=== PATIENT | female | born 1955 | race African-American/Black ===

== ENCOUNTER 2017-03-22 13:42 | Inpatient (IN) | payer BC ==
[~2017-03-22] VITALS: Ht 167.6 cm; Wt 120.8 kg
[2017-03-22] MEDS ORDERED: HYDROmorphone 2 MG/ML VIAL IM ONE ×3 (14:45→17:15)
[2017-03-22] MEDS ORDERED: predniSONE 10 MG TABLET PO ONE (14:45)
--- NOTE | 2017-03-22 14:58 | PHYS DOC ---
Past Medical History Past Medical History: GERD, Other Additional Past Medical Histor: herniated discs, prolapsed mitral valve, sciatica Past Surgical History: Alcohol Use: Rarely Drug Use: None Adult General Chief Complaint Chief Complaint: BACK PAIN - NO INJURY HPI HPI Patient is a 61 year old female who presents with complaint of right lower back pain. Patient states that she has history of sciatica. The patient was brought to the emergency department by EMS due to inability to walk today because of her pain. Patient states that her pain has been worsening for the last 4 days. Patient states that she has been to pain management clinic and has received multiple modalities of treatment including injections, physical therapy , and she states that this has not been able to fully control her pain. Patient does not remember any inciting event that led to worsening pain. Patient states that she has been taking ibuprofen with no relief in symptoms. Patient states that the pain starts in her right lower back and extends through to her right foot. Patient denies any loss of bowel or bladder control, saddle anesthesia, or foot drop. Patient rates pain currently is 10 out of 10. Patient states that she has been trying to ambulate with use of a cane but states that her leg has been causing too much pain for her to be able to do this. Review of Systems Review of Systems Constitutional: Denies fever or chills [] Eyes: Denies change in visual acuity, redness, or eye pain [] HENT: Denies nasal congestion or sore throat [] Respiratory: Denies cough or shortness of breath [] Cardiovascular: Denies chest pain or edema[] GI: Denies abdominal pain, nausea, vomiting, bloody stools or diarrhea [] : Denies dysuria or hematuria [] Musculoskeletal: Low back pain[] Integument: Denies rash or skin lesions [] Neurologic: Burning and tingling in right lower extremity, denies headache or focal weakness[] Current Medications Current Medications Current Medications Medications (Trade) Dose Ordered Sig/Manuel Start Time Stop Time Status Last Admin Dose Admin Hydromorphone HCl (Dilaudid) 1 mg 1X ONCE 03/22/17 17:15 03/22/17 17:16 DC Orphenadrine Citrate (Norflex) 60 mg 1X ONCE 03/22/17 16:30 03/22/17 16:31 DC 03/22/17 16:42 60 MG Prednisone (Prednisone) 50 mg 1X ONCE 03/22/17 14:45 03/22/17 14:46 DC 03/22/17 14:55 50 MG Allergies Allergies Allergies Coded Allergies Type Severity Reaction Last Updated Verified Iodine and Iodide Containing Produc Allergy Intermediate 03/22/17 Yes Physical Exam Physical Exam Constitutional: Alert, obese, afebrile, appears in moderate discomfort. [] HENT: Normocephalic, atraumatic, bilateral external ears normal, oropharynx moist, no oral exudates, nose normal. [] Eyes: PERRLA, EOMI, conjunctiva normal, no discharge. [] Neck: Normal range of motion, no tenderness, supple, no stridor. [] Cardiovascular:Heart rate regular rhythm, no murmur [] Lungs & Thorax: Bilateral breath sounds clear to auscultation [] Abdomen: Bowel sounds normal, soft, no tenderness, no masses, no pulsatile masses. [] Skin: Warm, dry, no erythema, no rash. [] Back: Right lower lumbar paraspinous muscle tenderness to palpation, no midline tenderness, positive straight leg test and right lower extremity, no flank ecchymosis. [] Extremities: No tenderness, no cyanosis, no clubbing, ROM intact, no edema. [] Neurologic: Alert and oriented X 3, normal motor function, bilateral lower extremity dorsiflexion that foot 5 out of 5, normal sensory function, no focal deficits noted. [] Current Patient Data Vital Signs Vital Signs Date Time Temp Pulse Resp B/P (MAP) Pulse Ox O2 Delivery O2 Flow Rate FiO2 03/22/17 18:20 Room Air 03/22/17 13:45 98.8 84 20 150/85 (106) 99 98.8 EKG EKG Not performed[] Radiology/Procedures Radiology/Procedures Not performed[] Course & Med Decision Making Course & Med Decision Making Pertinent Labs and Imaging studies reviewed. (See chart for details) The patient has clinical signs of acute exacerbation of right-sided sciatica. Patient will be started on IM Dilaudid and oral prednisone in the emergency department. The patient may require multiple doses in the emergency department with a goal of adequate pain control and continue outpatient treatment. If the patient does not improve after multiple doses of meds given, it would be appropriate to admit the patient for further pain control. Care of patient was signed out to Dr. Ani at 1500. Patient has been reevaluated in the ED for management of her pain. Patient attempted ambulation at approximately 5 PM without success. Patient was given an additional dose of Dilaudid and IM Norflex without any significant improvement in her pain. Patient is still not and bleeding safely. Patient was unable take more than 2 steps without nearly falling. Patient was on the third floor and does not feel safe going home. Given the patient's severe pain and inability to ambulate she will be admitted to the hospital for pain management. Patient has labs ordered as well as CT scan of her lumbosacral spine. We will consult physical therapy. Dragon Disclaimer Dragon Disclaimer This electronic medical record was generated, in whole or in part, using a voice recognition dictation system. Departure Departure Impression: Primary Impression: Sciatica of right side Additional Impression: Intractable back pain Disposition: ADMITTED INPATIENT Admitting Physician: Derek Mendoza Condition: IMPROVED Problem Qualifiers GOVIND SIEGEL MD Mar 22, 2017 14:58 FRANCES ALEGRIA MD Mar 22, 2017 19:42
[2017-03-22] MEDS ORDERED: HYDROmorphone 2 MG/ML VIAL IV ONE (16:30)
[2017-03-22] MEDS ORDERED: ORPHENADRINE CITRATE 60 MG/2 ML VIAL. IM ONE (16:30)
[2017-03-22] MEDS ORDERED: ONDANSETRON PF 4 MG/2 ML VIAL. IV PRN (19:45)
[2017-03-22] MEDS ORDERED: ACETAMINOPHEN 325 MG TABLET. PO PRN (19:45)
[2017-03-22] MEDS ORDERED: KETOROLAC 15 MG/ML VIAL. IV ONE (19:45)
[2017-03-22 19:52] LABS: BILIRUBIN,URINE NEGATIVE (NEG); GLUCOSE,URINE NEGATIVE (NEG); NITRITE,URINE NEGATIVE (NEG); PROTEIN,URINE NEGATIVE (NEG-TRACE); UROBILINOGEN,URINE 0.2 mg/dL (0.2 mg/dL)
[2017-03-22 20:05] LABS: BACTERIA,URINE MODERATE /HPF (0-FEW); RBC,URINE OCC /HPF (0-2); SQUAMOUS EPITHELIAL CELL,UR MOD /LPF
[2017-03-22] MEDS ORDERED: VENL75TA PO (20:07)
[2017-03-22 20:08] LABS: BASO % 0 % (0-3); EOS % 0 % (0-3); HEMATOCRIT 39.1 % (36.0-47.0); HEMOGLOBIN 12.4 g/dL (12.0-15.5); LYMPH # 1.2 x10^3/uL (1.0-4.8); LYMPH % 13 % (24-48); MEAN CORPUSCULAR HEMOGLOBIN 27 pg (25-35); MEAN CORPUSCULAR HGB CONC 32 g/dL (31-37); MEAN CORPUSCULAR VOLUME 86 fL (79-100); MONO % 2 % (0-9); NEUT % 85 % (31-73); PLATELET COUNT 475 x10^3/uL (140-400); RED BLOOD COUNT 4.53 x10^6/uL (3.50-5.40); RED CELL DISTRIBUTION WIDTH 16.3 % (11.5-14.5)
[2017-03-22 20:18] LABS: CALCIUM 8.8 mg/dL (8.5-10.1); CREATININE 0.7 mg/dL (0.6-1.0); GFR 102.3; POTASSIUM 4.6 mmol/L (3.5-5.1)
[2017-03-22 20:24] LABS: ALBUMIN 3.5 g/dL (3.4-5.0); ALBUMIN/GLOBULIN RATIO 0.8 (1.0-1.7); TOTAL BILIRUBIN 0.2 mg/dL (0.2-1.0); TOTAL PROTEIN 7.7 g/dL (6.4-8.2)
--- NOTE | 2017-03-22 20:49 | RAD ---
CT STUDY OF THE LUMBAR SPINE WITHOUT CONTRAST Clinical indications: Inability to walk this exam due to low back pain. History of sciatica. There is pain in the right foot. TECHNIQUE: Noncontrast helical CT scanning of the lumbar spine was performed. Multiplanar 2-D reconstructions were generated. FINDINGS: No compression fracture or discitis or osteolytic process is seen. There is a grade 1 anterolisthesis of L4-5 secondary to degenerative facet arthropathy. No spondylolysis is seen. The transverse processes are intact. At L2-3, mild diffuse disc protrusion is seen. At L3-4, moderate diffuse disc protrusion and degenerative endplate spurring is seen. Moderate facet arthropathy and ligamentum flavum hypertrophy is seen. These findings combine to form a moderate to severe spinal canal stenosis. There is mild narrowing of the neural foramina bilaterally. At L4-5, moderate diffuse disc protrusion and degenerative endplate spurring is seen. Facet arthropathy and ligamentum flavum hypertrophy is seen. These findings combine to form a moderate to severe spinal canal stenosis. In addition, there is mild narrowing of the neural foramina bilaterally. At L5-S1, moderate degenerative endplate spurring and diffuse disc bulging is seen which extends into the inferior aspect of the neural foramen bilaterally. There is moderate narrowing of the neural foramina bilaterally worse on the left side. Facet arthropathy and ligamentum flavum hypertrophy is seen. These findings combine to form a mild spinal canal stenosis at this level. Incidental note is made of calcified uterine fibroids. Small hiatal hernia is seen. IMPRESSION: No acute fracture. Multilevel spinal canal stenosis and neural foraminal narrowing as discussed above. Electronically signed by: Candido Han MD (03/22/2017 8:46 PM) [facility]
[2017-03-22 23:00] VITALS: BP 161/81
[2017-03-23] MEDS: fentaNYL PF VIAL 100 MCG/2 ML VIAL IV PRN ×3 (00:15→09:22)
[2017-03-23 03:00] VITALS: BP 160/93
[2017-03-23] MEDS ORDERED: RANI300C PO (06:03)
[2017-03-23] MEDS ORDERED: VENL75CA PO (06:03)
[2017-03-23] MEDS ORDERED: IBUP-1060 PO (06:03)
[2017-03-23] MEDS ORDERED: FAMOTIDINE 20 MG TABLET. PO PRN (06:15)
[2017-03-23] MEDS ORDERED: IBUPROFEN 800 MG TABLET. PO PRN (06:15)
[2017-03-23 07:00] VITALS: BP 155/82
[2017-03-23] MEDS: VENLAFAXINE XR 37.5 MG CAP.ER.24H. PO SCH (09:21)
[2017-03-23] MEDS ORDERED: ACETAMINOPHEN 325 MG TABLET. PO PRN (09:30)
[2017-03-23] MEDS ORDERED: MORPHINE SULFATE 2 MG/ML DISP.SYRIN. IV PRN (09:30)
[2017-03-23] MEDS ORDERED: traZODone 50 MG TABLET. PO PRN (09:30)
[2017-03-23] MEDS ORDERED: MAGNESIUM HYDROXIDE 2,400 MG/30 ML ORAL.SUSP. PO PRN (09:30)
[2017-03-23] MEDS ORDERED: MORPHINE SULFATE 4 MG/ML DISP.SYRIN. IV PRN (09:30)
--- NOTE | 2017-03-23 09:48 | PDOC ---
Provider Note Provider Note history and physical dictated # [id number] MARCELA KWOK MD Mar 23, 2017 09:48
[2017-03-23] MEDS: amLODIPine BESYLATE 5 MG TABLET PO SCH (10:26)
[2017-03-23] MEDS: MULTIVITAMIN with MINERAL TABLET. PO SCH (10:26)
[2017-03-23] MEDS: FAMOTIDINE 20 MG TABLET. PO SCH ×2 (10:27→20:53)
[2017-03-23] MEDS: NICOTINE 14MG PATCH. TD SCH (10:28)
--- NOTE | 2017-03-23 10:31 | RAD ---
AP portable chest radiograph 03/23/2017 Clinical History: Hypertension. An AP portable erect digital radiograph of the chest was obtained. Comparison study is dated 12/22/2010. The cardiac silhouette is borderline enlarged. The thoracic aorta is tortuous. No acute pulmonary infiltrate is seen. No pleural effusion or pneumothorax is noted. Degenerative changes are seen involving the thoracic spine and both shoulders. Impression: No acute abnormality is seen.
--- NOTE | 2017-03-23 10:43 | EKG ---
[facility] [address] [place] [address] Test Date: 2017-03-23 Test Time: 10:30:56 Pat Name: NGA KHAN Department: Room: 536 1 Gender: F Outcomes Manager: : 1955 Requested By: MARCELA KWOK Order Number: [id number] Reading MD: Mary Kay Yanez Measurements Intervals [place] Rate: 77 P: 64 FL: 146 QRS: 34 QRSD: 78 T: 35 QT: 366 QTc: 416 Interpretive Statements SINUS RHYTHM NORMAL ECG Electronically Signed On 03-25-2017 12:00:51 CDT by Mary Kay Yanez
[2017-03-23 10:59] VITALS: BP 141/80
--- NOTE | 2017-03-23 11:00 | HP ---
ADMIT DATE: 03/22/2017 LOCATION: She is in room 536. HISTORY OF PRESENT ILLNESS: The patient is a 61-year-old -[place] female with a history of low back pain and right-sided sciatica, who received lumbar epidural steroid injections 1-2 years ago without benefit. She has been continuing to have intermittent pain in her lower back and sciatica down the right leg, developed worsening symptoms starting on 03/18/2017 without any injury or significant trauma. She has had intractable low back pain and sciatica down the right leg and feels like her right foot has pins and needles. It is to the point where she could not get out of bed and move around because of the severe pain. She sought help at the [facility] Emergency Room on 03/22/2017 and a CAT scan of lumbosacral spine showed that she had moderate to severe spinal stenosis involving L3-L4 and L4-L5. She had mild spinal stenosis involving L5-S1. She subsequently admitted to the hospital for pain control and for evaluation of her lumbar spinal stenosis with right-sided lumbar radiculopathy, intractable back pain and right leg pain. She denies any fever. Bowels have been moving well. Denies any bowel or bladder incontinence. ALLERGIES AND INTOLERANCES: INCLUDE OMEPRAZOLE, VANCOMYCIN CAUSE ITCHING, AND IODINE. MEDICATIONS: Prior to admission include Effexor XR 225 mg every day, multiple vitamin every day, ranitidine 150 mg b.i.d., trazodone 50 mg at bedtime p.r.n., vitamin C 500 mg every day and vitamin D 2000 units every day. PAST MEDICAL HISTORY: Significant for depression, osteoarthritis, gastroesophageal reflux disease. She also has a history of osteoarthritis. She has a history of lumbar spondylosis and intermittent right-sided lumbar radiculopathy. SOCIAL HISTORY: She does not drink alcohol nor does she smoke cigarettes. FAMILY HISTORY: Noncontributory. REVIEW OF SYSTEMS: GENERAL: She denies any fever, chills or sweats prior to admission. CARDIOVASCULAR: No chest pain. PULMONARY: No cough or shortness of breath. GASTROINTESTINAL: No constipation. SKIN: No rashes. NEUROLOGIC: She has got the sciatica down the right leg. ENDOCRINE: No diabetes mellitus. The rest of systems reviewed are negative except as stated in the history of present illness. PHYSICAL EXAMINATION: VITAL SIGNS: Her temperature is 98 degrees, apical pulse 77, respiratory rate 18, blood pressure is 155/82, and her blood pressure has been high since she has been admitted. Oxygen saturation 98% on room air. HEENT: Eyes: Gaze is conjugate. Extraocular muscles are intact. Mouth: Tongue is midline. NECK: There is no cervical lymphadenopathy or thyroid enlargement. HEART: Reveals an S1, S2. There is no S3 or murmur. LUNGS: Clear. ABDOMEN: Soft with no hepatosplenomegaly, masses or tenderness. EXTREMITIES: Lower extremities without edema. Dorsalis pedis pulses are 2+ bilaterally. SKIN: No rashes. NEUROLOGIC: She is coherent, got 5/5 bilateral hand occupational health coordinator and biceps strength. Able to dorsi and plantarflex her feet, bend her knees and raise her legs up in the air. SKIN: No rashes. REVIEW OF LABORATORY DATA: Her white count is 9, hemoglobin 12.4, platelet count ,000, 85 polys and 13 lymphocytes. Sodium 142, potassium 4.6, chloride 104, total CO2 is 30, blood sugar 124 last night and was 141 at bedtime. Liver function tests were normal. Albumin 3.5. Urinalysis was unremarkable. ASSESSMENT: 1. Lumbar spinal stenosis with intractable low back pain and right lumbar radiculopathy, which has progressed in the last 6 days, making it an intractable pain involving her back and radiculopathy. 2. Gastroesophageal reflux disease. 3. Hypertension. PLAN: At this time is to consult Dr. Mason for physical rehabilitation and we will also consult Dr. Link for neurosurgery and also Dr. Benjamin Lopez for lumbar epidural steroid injection, which however, did not work 1-2 years ago. We will also consult physical and occupational therapy. We will order morphine sulfate 2-4 mg IV every 4 hours p.r.n., oxycodone 5-10 mg every 4 hours p.r.n. and Flexeril 10 mg t.i.d. p.r.n. and ibuprofen 800 mg t.i.d., Pepcid 20 mg b.i.d. and continue the Effexor XR. We will also order a baseline EKG and a chest x-ray and start her on amlodipine 5 mg every day for hypertension. We will also get an MRI of the lumbar spine to look at that lower back more closely. We will put her on Senokot-S daily and SCDs for deep vein thrombosis prophylaxis. MARCELA KWOK MD DR: ANCA/fanta JOB#: [id number] / [id number]
--- NOTE | 2017-03-23 12:10 | PDOC ---
Provider Note Provider Note patient seen and examined c/o back and right leg pain On CT scan stenosis primarily at L4-5 strongly opposed to any surgical intervention recommend lumbar epidural steroid injections Lumbar MRI today full consult to follow NIKOS KNIGHT MD Mar 23, 2017 12:10
[2017-03-23] MEDS ORDERED: BUPIVACAINE MPF 0.25% 10 ML VIAL. IJ ONE (12:15)
[2017-03-23] MEDS ORDERED: methylPREDNISolone ACETATE 40 MG/ML VIAL. IM ONE ×3 (12:15)
--- NOTE | 2017-03-23 12:53 | CONS ---
DATE OF CONSULTATION: LOCATION: She is in room# 536. ATTENDING PHYSICIAN: Dr. Mendoza. REASON FOR CONSULTATION: The patient was seen at the request of Dr. Mendoza for rehab evaluation. HISTORY OF PRESENT ILLNESS: This is a 61-year-old right-handed female with chronic lower back pain with right lumbar radiculitis. Had received lumbar epidural steroid injections about 1-2 years ago without any help. The patient with intermittent back pain, but started having increasing pain, starting on 03/18/2017, without any specific injury or accident. She was admitted through the Emergency Room on 03/22/[address] scan of the lumbar spine revealed [id number] spinal stenosis involving L3-L4, L4-L5, and mild stenosis at L5-S1. The patient denies any trouble with her bowel or bladder control. She admits pain in her neck with heaviness feeling in her left upper extremity, and also numbness, tingling in both hands, and right lower extremity, and she also admits pain in her knees. The patient with known depression, degenerative joint disease of both knees. Had steroid injection done in the past without any lasting help. Gastroesophageal reflux disease. 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 She lives in a third-level apartment. Had lots of stairs for her to manage. She had a cane to walk. ALLERGIES: THE PATIENT IS KNOWN ALLERGIC TO IODINE, LACTOSE, OMEPRAZOLE, VANCOMYCIN. PHYSICAL EXAMINATION: Today revealed a middle-aged female. She is pleasant, alert, oriented to time, place, person and circumstance, and follows commands appropriately. Moves all 4 extremities voluntarily, where she had 4+/5 grade muscle strength. Deep tendon reflexes are 1 to 2+ and symmetrical, and she had equal perception of touch and pinprick sensation bilaterally. She had a crepitus on range of motion of both knee joints, with knee joint effusion, and she had tenderness to palpation over right lumbar paraspinal muscles, extending over to the right gluteal muscles, over sacroiliac joint area and right trochanteric bursa, and also over cervical paraspinal muscles and also over thumb carpometacarpal joints bilaterally. She had positive Tinel sign over median nerve at the wrist. Negative Tinel sign over ulna, at the wrist and elbow. She is independent with bed mobility. I have not tested her transfers or ambulation skills at this time. Straight leg raising test is negative bilaterally. Her skin is intact at this time. She had tenderness to palpation over medial aspect of both knees. ASSESSMENT: 1. A middle-aged female, with chronic lower back pain, with recent exacerbation from degenerative disk disease and degenerative joint disease of lumbar vertebrae with right lumbar radiculitis, but no clinical evidence of ongoing lumbar radiculopathy. 2. Painful degenerative joints of both knees. 3. Probable degenerative disk disease and degenerative joint disease of cervical vertebrae with left cervical radiculitis and clinical evidence of bilateral carpal tunnel syndrome. She knows that she had carpal tunnel syndrome in the past, but had not had surgery for it. She also had degenerative changes at thumb carpometacarpal joints in both hands, without any significant discomfort. The patient with known depression, gastroesophageal reflux disease and obesity. RECOMMENDATIONS: At her request, I have injected painful right sacroiliac joint under aseptic skin technique, after skin preparation using alcohol swab with Marcaine and Depo-Medrol solution, and she tolerated the procedure satisfactorily without any side effects. To ask physical therapy to try physical modalities, to also obtain MRI scan for cervical vertebrae and x-rays of her knees, and agree with the plans for a walker. Hopefully, home with outpatient followup when medically stable in the next day or so. Dr. Mendoza, appreciate asking me to participate in the care of this interesting patient. I will be glad to follow her with you as needed for her rehabilitation. BOB GUADARRAMA MD DR: MARIA ESTHER/fanta JOB#: [id number] / [id number] SULEMA
[2017-03-23 15:00] VITALS: BP 135/83
[2017-03-23] MEDS: CHOLECALCIFEROL (VITAMIN D3) 1,000 UNIT TABLET PO SCH (15:31)
[2017-03-23] MEDS: IBUPROFEN 800 MG TABLET. PO SCH ×2 (15:31→21:00)
--- NOTE | 2017-03-23 18:20 | CONS ---
DATE OF CONSULTATION: 03/23/2017 REASON FOR CONSULTATION: Back and right leg pain. HISTORY OF PRESENT ILLNESS: The patient is a pleasant 61-year-old woman who has a long history of low back pain as well as episodes of right-sided radiculopathy. She reported to me that she received epidural steroid injections for a similar problem, although not quite as severe, a couple of years ago without significant benefit. She did say that she improved, but has had continued difficulty with some pain in her back and right leg. Recently she developed worsened symptoms. She said the pain would radiate into her right leg and she felt like there was a pins and needles sensation in her right foot. She had difficulty ambulating. She was taken to the Emergency Room for further evaluation and treatment and is admitted. She did undergo a CT scan of the lumbar spine recently in which spinal stenosis was seen. Since she has been hospitalized, she feels as though her pain control has improved. She continues to have difficulty with walking. She does not notice weakness in her leg, but says that there is numbness in her right foot. She does not notice any bowel or bladder difficulty. ALLERGIES: SHE REPORTS ALLERGIES TO OMEPRAZOLE, VANCOMYCIN AND IODINE. MEDICATIONS: Reviewed on the MRAD, they are noncontributory. PAST MEDICAL HISTORY: Includes gastroesophageal reflux disease, degenerative arthritis, depression. SOCIAL HISTORY: She does not drink alcohol or smoke cigarettes. REVIEW OF SYSTEMS: A 12 points was performed and was negative other than outlined above. PHYSICAL EXAMINATION: GENERAL: She is pleasant, alert and cooperative. HEENT: Normocephalic, atraumatic. NEUROLOGICAL: Pupils were equal and reactive. Extraocular motor function was normal. Facial motor and facial sensory examination was normal. Lower cranial nerves were intact. Examination of her extremities, there was full range of motion of upper and lower extremities bilaterally. Motor strength is 5/5 in upper and lower extremities bilaterally. On sensory testing, she was intact to light touch in the upper and lower extremities with a slight decrease involving the dorsum of her right foot. Reflexes were trace to 1+ and symmetric. Straight leg raising on the right side was associated with back, right buttock and posterior thigh pain, relieved by Lasegue maneuver. Straight leg raising on the left side was negative. Examination of the lumbar spine, there was diffuse tenderness over the lower lumbar spine and also over the lumbar paraspinal regions bilaterally. IMAGING STUDIES: I reviewed a lumbar CT scan. On that study, I felt that there was moderately severe stenosis at L4-L5 and more mild stenosis at L3-L4. ASSESSMENT AND PLAN: The patient has a lumbar radiculopathy on the right side, most likely related to her stenosis at L4-L5. She has had problems now for years and has failed conservative measures in the past. I touched treatment options. She is strongly opposed to any type of surgical intervention. We will have Dr. Lopez see here for epidural steroid injections. She is scheduled to receive a lumbar MRI scan. I appreciate asking us to see her. NIKOS KNIGHT MD DR: EMILY/fanta JOB#: [id number] / [id number] SULEMA
[2017-03-23 19:00] VITALS: BP 143/80
[2017-03-23] MEDS: oxyCODONE IR 5 MG TABLET PO PRN (20:55)
[2017-03-23] MEDS: SENNOSIDES/DOCUSATE 8.6/50MG TABLET. PO SCH (20:56)
[2017-03-23 23:00] VITALS: BP 150/76
[2017-03-24] MEDS: oxyCODONE IR 5 MG TABLET PO PRN ×4 (00:51→23:45)
[2017-03-24] MEDS: CYCLOBENZAPRINE 10 MG TABLET. PO PRN ×3 (00:51→23:45)
[2017-03-24 03:00] VITALS: BP 138/68
[2017-03-24 07:00] VITALS: BP 138/84
--- NOTE | 2017-03-24 08:28 | RAD ---
Standing AP bilateral knee radiographs 03/23/2017 Clinical history: Bilateral knee pain. Standing AP digital radiographs of both knees were obtained. Moderate to severe degenerative changes are seen involving all 3 compartments of both knees, particularly the medial compartments. This consist of marked joint compartment narrowing, subchondral sclerosis and associated osteophyte formation. The joint spaces of the medial compartments of both knees are largely obliterated with near bone to bone contact. No fracture or dislocation is seen. Impression: Moderate to severe degenerative changes are seen involving both knees as outlined above.
[2017-03-24] MEDS: MULTIVITAMIN with MINERAL TABLET. PO SCH (08:49)
[2017-03-24] MEDS: CHOLECALCIFEROL (VITAMIN D3) 1,000 UNIT TABLET PO SCH (08:49)
[2017-03-24] MEDS: FAMOTIDINE 20 MG TABLET. PO SCH ×2 (08:52→20:27)
[2017-03-24] MEDS: amLODIPine BESYLATE 5 MG TABLET PO SCH (08:52)
[2017-03-24] MEDS: VENLAFAXINE XR 37.5 MG CAP.ER.24H. PO SCH (08:52)
[2017-03-24] MEDS: NICOTINE 14MG PATCH. TD SCH (08:53)
[2017-03-24] MEDS: IBUPROFEN 800 MG TABLET. PO SCH ×3 (09:00→20:27)
--- NOTE | 2017-03-24 09:39 | PDOC ---
PROGRESS NOTES Subjective Subjective says her back pain and sciatica is better but still hurts quite a bit., was able to wak to bathroom earlier. declines surgery. concurs with HOANG and will be seen by dr. Lopez tomorrow. bowels are okay. blood pressure is okay. Objective Objective Vital Signs Date Time Temp Pulse Resp B/P (MAP) Pulse Ox O2 Delivery O2 Flow Rate FiO2 03/24/17 08:53 Room Air 03/24/17 08:52 72 138/84 03/24/17 07:00 98.1 20 94 98.1 Intake and Output 03/25/17 07:00 Intake Total 300 ml Balance 300 ml Intake Oral 300 ml Physical Exam Abdomen: Soft Heart: Regular rate, Normal S1, Normal S2 Extremities: No edema General: Alert HEENT: Atraumatic Lungs: Clear to auscultation Neuro: Normal speech Psych/Mental Status: Mental status NL Skin: No rashes Assessment Assessment Problems1. Lumbar spinal stenosis with intractable low back pain and right lumbar radiculopathy 2. Gastroesophageal reflux disease. 3. Hypertension. Medical Problems: (1) Sciatica of right side Status: Acute Plan Plan of Care PT continue prn iv morphine and prn oxycodone continue prn flexeril consult dr. lopez for LESI continue amlodipine continue ibuprofen Comment Review of Relevant I have reviewed the following items blake (where applicable) has been applied. Labs Laboratory Tests Test 03/22/17 19:44 03/22/17 19:55 03/22/17 21:36 Urine Collection Type Unknown Urine Color Yellow Urine Clarity Cloudy Urine pH 6.0 Urine Specific [place] 1.025 Urine Protein Negative mg/dL (NEG-TRACE) Urine Glucose (UA) Negative mg/dL (NEG) Urine Ketones (Stick) Negative mg/dL (NEG) Urine Blood Negative (NEG) Urine Nitrite Negative (NEG) Urine Bilirubin Negative (NEG) Urine Urobilinogen Dipstick 0.2 mg/dL (0.2 mg/dL) Urine Leukocyte Esterase Negative (NEG) Urine RBC Occ /HPF (0-2) Urine WBC 1-4 /HPF (0-4) Urine Squamous Epithelial Cells Mod /LPF Urine Bacteria Moderate /HPF (0-FEW) Urine Mucus Marked /LPF White Blood Count 9.0 x10^3/uL (4.0-11.0) Red Blood Count 4.53 x10^6/uL (3.50-5.40) Hemoglobin 12.4 g/dL (12.0-15.5) Hematocrit 39.1 % (36.0-47.0) Mean Corpuscular Volume 86 fL (79-100) Mean Corpuscular Hemoglobin 27 pg (25-35) Mean Corpuscular Hemoglobin Concent 32 g/dL (31-37) Red Cell Distribution Width 16.3 % (11.5-14.5) Platelet Count 475 x10^3/uL (140-400) Neutrophils (%) (Auto) 85 % (31-73) Lymphocytes (%) (Auto) 13 % (24-48) Monocytes (%) (Auto) 2 % (0-9) Eosinophils (%) (Auto) 0 % (0-3) Basophils (%) (Auto) 0 % (0-3) Neutrophils # (Auto) 7.6 x10^3uL (1.8-7.7) Lymphocytes # (Auto) 1.2 x10^3/uL (1.0-4.8) Monocytes # (Auto) 0.2 x10^3/uL (0.0-1.1) Eosinophils # (Auto) 0.0 x10^3/uL (0.0-0.7) Basophils # (Auto) 0.0 x10^3/uL (0.0-0.2) Sodium Level 142 mmol/L (136-145) Potassium Level 4.6 mmol/L (3.5-5.1) Chloride Level 104 mmol/L (98-107) Carbon Dioxide Level 30 mmol/L (21-32) Anion Gap 8 (6-14) Blood Urea Nitrogen 10 mg/dL (7-20) Creatinine 0.7 mg/dL (0.6-1.0) Estimated GFR (Cockcroft-Gault) 102.3 BUN/Creatinine Ratio 14 (6-20) Glucose Level 124 mg/dL (70-99) Calcium Level 8.8 mg/dL (8.5-10.1) Total Bilirubin 0.2 mg/dL (0.2-1.0) Aspartate Amino Transf (AST/SGOT) 23 U/L (15-37) Alanine Aminotransferase (ALT/SGPT) 29 U/L (14-59) Alkaline Phosphatase 75 U/L (46-116) Total Protein 7.7 g/dL (6.4-8.2) Albumin 3.5 g/dL (3.4-5.0) Albumin/Globulin Ratio 0.8 (1.0-1.7) Glucose (Fingerstick) 141 mg/dL (70-99) Microbiology 03/22/17 Urine Culture - Preliminary, Resulted 03/22/17 Urine Culture Result 1 (VERNA) - Preliminary, Resulted Medications Current Medications Hydromorphone HCl (Dilaudid) 1 mg 1X ONCE IM Last administered on 03/22/17 14 :55; Start 03/22/17 at 14:45; Stop 03/22/17 at 14:46; Status DC Prednisone (Prednisone) 50 mg 1X ONCE PO Last administered on 03/22/17 14:55 ; Start 03/22/17 at 14:45; Stop 03/22/17 at 14:46; Status DC Orphenadrine Citrate (Norflex) 60 mg 1X ONCE IM Last administered on 16:42; Start 03/22/17 at 16:30; Stop 03/22/17 at 16:31; Status DC Hydromorphone HCl (Dilaudid) 1 mg 1X ONCE IV ; Start 03/22/17 at 16:30; Stop at 17:08; Status DC Hydromorphone HCl (Dilaudid) 1 mg 1X ONCE IM Last administered on 03/22/17 17 :08; Start 03/22/17 at 17:15; Stop 03/22/17 at 17:16; Status DC Hydromorphone HCl (Dilaudid) 1 mg 1X ONCE IM ; Start 03/22/17 at 17:15; Stop at 17:16; Status DC Ondansetron HCl (Zofran) 4 mg PRN Q8HRS PRN IV NAUSEA/VOMITING; Start 03/22/17 at 19:45; Stop 03/23/17 at 19:44; Status DC Fentanyl Citrate (Fentanyl 2ml Vial) 50 mcg PRN Q2HR PRN IV PAIN Last administered on 03/23/17 09:22; Start 03/22/17 at 19:45; Stop 03/23/17 at 19:44 ; Status DC Acetaminophen (Tylenol) 650 mg PRN Q4HRS PRN PO FEVER Last administered on 03/23 05:29; Start 03/22/17 at 19:45; Stop 03/23/17 at 09:44; Status DC Ketorolac Tromethamine (Toradol) 15 mg 1X ONCE IV Last administered on 20:37; Start 03/22/17 at 19:45; Stop 03/22/17 at 19:46; Status DC Venlafaxine HCl (Effexor Xr) 225 mg DAILY PO Last administered on 03/24/17 08: 52; Start 03/23/17 at 09:00 Ibuprofen (Motrin) 800 mg PRN BID PRN PO INFLAMMATION Last administered on 03/23 09:21; Start 03/23/17 at 06:15; Stop 03/23/17 at 09:38; Status DC Famotidine (Pepcid) 40 mg PRN BID PRN PO HEARTBURN / GAS; Start 03/23/17 at 06: 15; Stop 03/23/17 at 09:38; Status DC Famotidine (Pepcid) 20 mg BID PO Last administered on 03/24/17 08:52; Start at 10:00 Ibuprofen (Motrin) 800 mg TID PO Last administered on 03/23/17 15:31; Start at 14:00 Senna/Docusate Sodium (Senna Plus) 2 tab QHS PO ; Start 03/23/17 at 21:00 Morphine Sulfate 4 mg PRN Q4HRS PRN IV PAIN; Start 03/23/17 at 09:30 Morphine Sulfate 2 mg PRN Q4HRS PRN IV PAIN; Start 03/23/17 at 09:30 Oxycodone HCl (Roxicodone) 5 mg PRN Q4HRS PRN PO PAIN Last administered on 03/23 20:55; Start 03/23/17 at 09:30 Oxycodone HCl (Roxicodone) 10 mg PRN Q4HRS PRN PO PAIN Last administered on 08:53; Start 03/23/17 at 09:30 Multivitamins (Thera M Plus) 1 tab DAILY PO Last administered on 03/24/17 08: 49; Start 03/23/17 at 10:00 Trazodone HCl (Desyrel) 50 mg PRN QHS PRN PO INSOMNIA; Start 03/23/17 at 09:30 Vitamin D (Vitamin D3) 1,000 unit DAILY PO Last administered on 03/24/17 08:49 ; Start 03/23/17 at 10:00 Acetaminophen (Tylenol) 650 mg PRN Q6HRS PRN PO MILD PAIN / TEMP; Start at 09:30 Magnesium Hydroxide (Milk Of Magnesia) 2,400 mg PRN DAILY PRN PO CONSTIPATION; Start 03/23/17 at 09:30 Amlodipine Besylate (Norvasc) 5 mg DAILY PO Last administered on 03/24/17 08: 52; Start 03/23/17 at 10:00 Cyclobenzaprine HCl (Flexeril) 10 mg PRN TID PRN PO MUSCLE SPASMS Last administered on 03/24/17 09:01; Start 03/23/17 at 10:00 Nicotine (Nicoderm Cq 14mg) 1 patch DAILY TD Last administered on 03/24/17 08: 53; Start 03/23/17 at 11:00 Methylprednisolone Acetate (DEPO-Medrol 40MG VIAL) 40 mg 1X ONCE IM ; Start at 12:15; Stop 03/23/17 at 12:16; Status DC Methylprednisolone Acetate (DEPO-Medrol 40MG VIAL) 40 mg 1X ONCE IM ; Start at 12:15; Stop 03/23/17 at 12:16; Status DC Methylprednisolone Acetate (DEPO-Medrol 40MG VIAL) 40 mg 1X ONCE IM ; Start at 12:15; Stop 03/23/17 at 12:16; Status DC Bupivacaine HCl (Sensorcaine-Mpf 0.25%) 10 ml 1X ONCE IJ ; Start 03/23/17 at 12 :15; Stop 03/23/17 at 12:16; Status DC Active Scripts Active Reported Ibuprofen 800 Mg Tablet 800 Mg PO PRN BID PRN Ranitidine Hcl 300 Mg Capsule 1 Cap PO PRN BID PRN Effexor Xr (Venlafaxine Hcl) 75 Mg Cap.er.24h 3 Cap PO DAILY Vitals/I & O Vital Sign - Last 24 Hours 03/23/17 03/23/17 03/23/17 03/23/17 10:26 10:59 15:00 19:00 Temp 97.8 98.2 98.7 97.8 98.2 98.7 Pulse 77 78 80 99 Resp 18 18 20 B/P (MAP) 155/82 141/80 (100) 135/83 (100) 143/80 (101) Pulse Ox 97 94 95 O2 Delivery Room Air Room Air Room Air 03/23/17 03/23/17 03/23/17 03/23/17 20:00 20:55 21:55 23:00 Temp 98.6 98.6 Pulse 81 Resp 21 B/P (MAP) 150/76 (100) Pulse Ox 95 95 99 O2 Delivery Room Air Room Air Room Air Room Air 03/24/17 03/24/17 03/24/17 03/24/17 00:51 01:51 03:00 07:00 Temp 98.1 98.1 Pulse 88 72 Resp 19 20 B/P (MAP) 138/68 (91) 138/84 (102) Pulse Ox 99 99 99 94 O2 Delivery Room Air Room Air Room Air Room Air 03/24/17 03/24/17 08:52 08:53 Pulse 72 B/P (MAP) 138/84 O2 Delivery Room Air Intake and Output 03/24/17 03/24/17 03/25/17 15:00 23:00 07:00 Intake Total 300 ml Balance 300 ml MARCELA KWOK MD Mar 24, 2017 09:39
[2017-03-24 11:00] VITALS: BP 144/91
--- NOTE | 2017-03-24 11:47 | RAD ---
MRI of the cervical spine without contrast 03/23/2017 Clinical history: Neck pain which radiates down the left arm. Technique: Unenhanced T1-weighted, T2-weighted and inversion recovery sagittal and gradient echo T2 weighted axial images of the cervical spine were obtained. Findings: Minimal lateral curvature of the cervical spine is seen convex to the left. There is straightening of the normal cervical lordosis. Incomplete segmentation is seen at T2-3. Degenerative signal changes are seen involving all of the discs of the cervical spine. Degenerative signal changes are seen within the marrow surrounding these discs. No area of abnormal signal intensity is seen involving the cervical spinal cord. On axial images degenerative changes are seen throughout the cervical disc spaces consisting of minimal to mild generalized disc bulges and degenerative changes involving the uncovertebral and facet joints bilaterally. Disc osteophyte complexes are seen at C4-5, C5-6 and C6-7 which measure 3 mm in AP diameter. These findings when combined do not result in significant central spinal canal stenosis at any level. No neural foraminal stenosis is seen. Impression: Degenerative changes are seen throughout the cervical spine. These findings do not result in significant central spinal canal or neural foraminal stenosis at any level.
--- NOTE | 2017-03-24 11:56 | RAD ---
MRI of the lumbar spine without contrast 03/23/2017 Clinical history: Low back pain which radiates down the right leg. Technique: Unenhanced T1-weighted and T2-weighted sagittal and axial and inversion recovery sagittal images of the lumbar spine were obtained. Findings: Comparison is made to a CT scan of the lumbar spine dated 03/22/2017. Mild lateral curvature of the lumbar spine is seen convex to the left. Degenerative signal changes are seen involving all of the discs of the lumbar spine. Degenerative signal changes are seen within the marrow surrounding these discs. Loss of height of the L5-S1 disc is noted. The conus medullaris is normal in morphology, position, and signal characteristics. The L1-2 disc space is within normal limits. At the L2-3 disc space there is a mild generalized disc bulge. This is eccentric to the right. Degenerative changes are seen along the facet joints bilaterally. There is mild ligamentum flavum hypertrophy bilaterally. These findings when combined do not result in significant central spinal canal or neural foraminal stenosis. At the L3-4 disc space there is a mild to moderate generalized disc bulge. Degenerative changes are seen involving the facet joints bilaterally. There is moderate ligament flavum hypertrophy bilaterally. These findings when combined result in mild to moderate central spinal canal stenosis. No neural foraminal stenosis is seen. At the L4-5 disc space there is a mild generalized disc bulge. Degenerative changes are seen involving the facet joints bilaterally. There is moderate ligamentum flavum hypertrophy bilaterally. Small facet joint effusions are seen, right greater than left. These findings when combined result in moderate to severe central spinal canal stenosis. Mild right greater than left neural foraminal stenosis is seen. At the L5-S1 disc space there is a mild generalized disc bulge. This is eccentric to the left. Degenerative changes are seen involving the facet joints bilaterally. These findings when combined do not result in significant central spinal canal stenosis. Mild to moderate left greater than right neural foraminal stenosis is seen. Impression: The changes of degenerative disc disease are seen throughout the lumbar spine. These findings result in mild to moderate central spinal canal stenosis at L3-4 and moderate to severe central spinal canal stenosis at L4-5. Mild right greater than left neural foraminal stenosis is seen at L4-5. Mild to moderate left greater the right neural foraminal stenosis is seen at L5-S1.
--- NOTE | 2017-03-24 12:58 | PDOC ---
PROGRESS NOTES Subjective Subjective improved less hip and leg pain today walking with walker Objective Objective Vital Signs Date Time Temp Pulse Resp B/P (MAP) Pulse Ox O2 Delivery O2 Flow Rate FiO2 03/24/17 11:00 98.1 79 20 144/91 (108) 99 Room Air 98.1 Intake and Output 03/25/17 07:00 Intake Total 300 ml Balance 300 ml Intake Oral 300 ml Physical Exam General: Alert, Oriented X3 Neuro: Other (normal strength in RLE) Assessment Assessment Problems Medical Problems: (1) Sciatica of right side Status: Acute Plan Plan of Care lumbar MRI moderate central canal stenosis at L4-5 with lateral recess narrowing LESI tomorrow can f/u with me as OP Comment Review of Relevant I have reviewed the following items blake (where applicable) has been applied. Labs Laboratory Tests Test 03/22/17 19:44 03/22/17 19:55 03/22/17 21:36 Urine Collection Type Unknown Urine Color Yellow Urine Clarity Cloudy Urine pH 6.0 Urine Specific [place] 1.025 Urine Protein Negative mg/dL (NEG-TRACE) Urine Glucose (UA) Negative mg/dL (NEG) Urine Ketones (Stick) Negative mg/dL (NEG) Urine Blood Negative (NEG) Urine Nitrite Negative (NEG) Urine Bilirubin Negative (NEG) Urine Urobilinogen Dipstick 0.2 mg/dL (0.2 mg/dL) Urine Leukocyte Esterase Negative (NEG) Urine RBC Occ /HPF (0-2) Urine WBC 1-4 /HPF (0-4) Urine Squamous Epithelial Cells Mod /LPF Urine Bacteria Moderate /HPF (0-FEW) Urine Mucus Marked /LPF White Blood Count 9.0 x10^3/uL (4.0-11.0) Red Blood Count 4.53 x10^6/uL (3.50-5.40) Hemoglobin 12.4 g/dL (12.0-15.5) Hematocrit 39.1 % (36.0-47.0) Mean Corpuscular Volume 86 fL (79-100) Mean Corpuscular Hemoglobin 27 pg (25-35) Mean Corpuscular Hemoglobin Concent 32 g/dL (31-37) Red Cell Distribution Width 16.3 % (11.5-14.5) Platelet Count 475 x10^3/uL (140-400) Neutrophils (%) (Auto) 85 % (31-73) Lymphocytes (%) (Auto) 13 % (24-48) Monocytes (%) (Auto) 2 % (0-9) Eosinophils (%) (Auto) 0 % (0-3) Basophils (%) (Auto) 0 % (0-3) Neutrophils # (Auto) 7.6 x10^3uL (1.8-7.7) Lymphocytes # (Auto) 1.2 x10^3/uL (1.0-4.8) Monocytes # (Auto) 0.2 x10^3/uL (0.0-1.1) Eosinophils # (Auto) 0.0 x10^3/uL (0.0-0.7) Basophils # (Auto) 0.0 x10^3/uL (0.0-0.2) Sodium Level 142 mmol/L (136-145) Potassium Level 4.6 mmol/L (3.5-5.1) Chloride Level 104 mmol/L (98-107) Carbon Dioxide Level 30 mmol/L (21-32) Anion Gap 8 (6-14) Blood Urea Nitrogen 10 mg/dL (7-20) Creatinine 0.7 mg/dL (0.6-1.0) Estimated GFR (Cockcroft-Gault) 102.3 BUN/Creatinine Ratio 14 (6-20) Glucose Level 124 mg/dL (70-99) Calcium Level 8.8 mg/dL (8.5-10.1) Total Bilirubin 0.2 mg/dL (0.2-1.0) Aspartate Amino Transf (AST/SGOT) 23 U/L (15-37) Alanine Aminotransferase (ALT/SGPT) 29 U/L (14-59) Alkaline Phosphatase 75 U/L (46-116) Total Protein 7.7 g/dL (6.4-8.2) Albumin 3.5 g/dL (3.4-5.0) Albumin/Globulin Ratio 0.8 (1.0-1.7) Glucose (Fingerstick) 141 mg/dL (70-99) Microbiology 03/22/17 Urine Culture - Preliminary, Resulted 03/22/17 Urine Culture Result 1 (VERNA) - Preliminary, Resulted Medications Current Medications Hydromorphone HCl (Dilaudid) 1 mg 1X ONCE IM Last administered on 03/22/17t 14 :55; Start 03/22/17 at 14:45; Stop 03/22/17 at 14:46; Status DC Prednisone (Prednisone) 50 mg 1X ONCE PO Last administered on 03/22/17 14:55 ; Start 03/22/17 at 14:45; Stop 03/22/17 at 14:46; Status DC Orphenadrine Citrate (Norflex) 60 mg 1X ONCE IM Last administered on 16:42; Start 03/22/17 at 16:30; Stop 03/22/17 at 16:31; Status DC Hydromorphone HCl (Dilaudid) 1 mg 1X ONCE IV ; Start 03/22/17 at 16:30; Stop at 17:08; Status DC Hydromorphone HCl (Dilaudid) 1 mg 1X ONCE IM Last administered on 03/22/17 17 :08; Start 03/22/17 at 17:15; Stop 03/22/17 at 17:16; Status DC Hydromorphone HCl (Dilaudid) 1 mg 1X ONCE IM ; Start 03/22/17 at 17:15; Stop at 17:16; Status DC Ondansetron HCl (Zofran) 4 mg PRN Q8HRS PRN IV NAUSEA/VOMITING; Start 03/22/17 at 19:45; Stop 03/23/17 at 19:44; Status DC Fentanyl Citrate (Fentanyl 2ml Vial) 50 mcg PRN Q2HR PRN IV PAIN Last administered on 03/23/17 09:22; Start 03/22/17 at 19:45; Stop 03/23/17 at 19:44 ; Status DC Acetaminophen (Tylenol) 650 mg PRN Q4HRS PRN PO FEVER Last administered on 03/23 05:29; Start 03/22/17 at 19:45; Stop 03/23/17 at 09:44; Status DC Ketorolac Tromethamine (Toradol) 15 mg 1X ONCE IV Last administered on 20:37; Start 03/22/17 at 19:45; Stop 03/22/17 at 19:46; Status DC Venlafaxine HCl (Effexor Xr) 225 mg DAILY PO Last administered on 03/24/17 08: 52; Start 03/23/17 at 09:00 Ibuprofen (Motrin) 800 mg PRN BID PRN PO INFLAMMATION Last administered on 03/23 09:21; Start 03/23/17 at 06:15; Stop 03/23/17 at 09:38; Status DC Famotidine (Pepcid) 40 mg PRN BID PRN PO HEARTBURN / GAS; Start 03/23/17 at 06: 15; Stop 03/23/17 at 09:38; Status DC Famotidine (Pepcid) 20 mg BID PO Last administered on 03/24/17 08:52; Start at 10:00 Ibuprofen (Motrin) 800 mg TID PO Last administered on 03/23/17 15:31; Start at 14:00 Senna/Docusate Sodium (Senna Plus) 2 tab QHS PO ; Start 03/23/17 at 21:00 Morphine Sulfate 4 mg PRN Q4HRS PRN IV PAIN; Start 03/23/17 at 09:30 Morphine Sulfate 2 mg PRN Q4HRS PRN IV PAIN; Start 03/23/17 at 09:30 Oxycodone HCl (Roxicodone) 5 mg PRN Q4HRS PRN PO PAIN Last administered on 03/23 20:55; Start 03/23/17 at 09:30 Oxycodone HCl (Roxicodone) 10 mg PRN Q4HRS PRN PO PAIN Last administered on 08:53; Start 03/23/17 at 09:30 Multivitamins (Thera M Plus) 1 tab DAILY PO Last administered on 03/24/17 08: 49; Start 03/23/17 at 10:00 Trazodone HCl (Desyrel) 50 mg PRN QHS PRN PO INSOMNIA; Start 03/23/17 at 09:30 Vitamin D (Vitamin D3) 1,000 unit DAILY PO Last administered on 03/24/17 08:49 ; Start 03/23/17 at 10:00 Acetaminophen (Tylenol) 650 mg PRN Q6HRS PRN PO MILD PAIN / TEMP; Start at 09:30 Magnesium Hydroxide (Milk Of Magnesia) 2,400 mg PRN DAILY PRN PO CONSTIPATION; Start 03/23/17 at 09:30 Amlodipine Besylate (Norvasc) 5 mg DAILY PO Last administered on 03/24/17 08: 52; Start 03/23/17 at 10:00 Cyclobenzaprine HCl (Flexeril) 10 mg PRN TID PRN PO MUSCLE SPASMS Last administered on 03/24/17 09:01; Start 03/23/17 at 10:00 Nicotine (Nicoderm Cq 14mg) 1 patch DAILY TD Last administered on 03/24/17 08: 53; Start 03/23/17 at 11:00 Methylprednisolone Acetate (DEPO-Medrol 40MG VIAL) 40 mg 1X ONCE IM ; Start at 12:15; Stop 03/23/17 at 12:16; Status DC Methylprednisolone Acetate (DEPO-Medrol 40MG VIAL) 40 mg 1X ONCE IM ; Start at 12:15; Stop 03/23/17 at 12:16; Status DC Methylprednisolone Acetate (DEPO-Medrol 40MG VIAL) 40 mg 1X ONCE IM ; Start at 12:15; Stop 03/23/17 at 12:16; Status DC Bupivacaine HCl (Sensorcaine-Mpf 0.25%) 10 ml 1X ONCE IJ ; Start 03/23/17 at 12 :15; Stop 03/23/17 at 12:16; Status DC Active Scripts Active Reported Ibuprofen 800 Mg Tablet 800 Mg PO PRN BID PRN Ranitidine Hcl 300 Mg Capsule 1 Cap PO PRN BID PRN Effexor Xr (Venlafaxine Hcl) 75 Mg Cap.er.24h 3 Cap PO DAILY Vitals/I & O Vital Sign - Last 24 Hours 03/23/17 03/23/17 03/23/17 03/23/17 15:00 19:00 20:00 20:55 Temp 98.2 98.7 98.2 98.7 Pulse 80 99 Resp 18 20 B/P (MAP) 135/83 (100) 143/80 (101) Pulse Ox 94 95 95 O2 Delivery Room Air Room Air Room Air Room Air 03/23/17 03/23/17 03/24/17 03/24/17 21:55 23:00 00:51 01:51 Temp 98.6 98.6 Pulse 81 Resp 21 B/P (MAP) 150/76 (100) Pulse Ox 95 99 99 99 O2 Delivery Room Air Room Air Room Air 03/24/17 03/24/17 03/24/17 03/24/17 03:00 07:00 08:00 08:52 Temp 98.1 98.1 Pulse 88 72 72 Resp 19 20 B/P (MAP) 138/68 (91) 138/84 (102) 138/84 Pulse Ox 99 94 O2 Delivery Room Air Room Air Room Air 03/24/17 03/24/17 03/24/17 08:53 09:53 11:00 Temp 98.1 98.1 Pulse 79 Resp 20 B/P (MAP) 144/91 (108) Pulse Ox 99 O2 Delivery Room Air Nasal Cannula Room Air Intake and Output 03/24/17 03/24/17 03/25/17 15:00 23:00 07:00 Intake Total 300 ml Balance 300 ml NIKOS KNIGHT MD Mar 24, 2017 12:58
[2017-03-24 15:06] VITALS: BP 135/87
[2017-03-24 19:00] VITALS: BP 140/87
[2017-03-24] MEDS: SENNOSIDES/DOCUSATE 8.6/50MG TABLET. PO SCH (20:27)
[2017-03-24 23:00] VITALS: BP 163/93
[2017-03-25] VITALS (7 sets, daily range): BP systolic 128–163; BP diastolic 72–98
[2017-03-25] MEDS: oxyCODONE IR 5 MG TABLET PO PRN ×3 (04:07→20:52)
[2017-03-25 08:22] LABS: CALCIUM 9.5 mg/dL (8.5-10.1); CREATININE 0.8 mg/dL (0.6-1.0); GFR 87.7
[2017-03-25] MEDS: MULTIVITAMIN with MINERAL TABLET. PO SCH (08:31)
[2017-03-25] MEDS: VENLAFAXINE XR 37.5 MG CAP.ER.24H. PO SCH (08:32)
[2017-03-25] MEDS: CHOLECALCIFEROL (VITAMIN D3) 1,000 UNIT TABLET PO SCH (08:32)
[2017-03-25] MEDS: FAMOTIDINE 20 MG TABLET. PO SCH ×2 (08:33→20:51)
[2017-03-25] MEDS: CYCLOBENZAPRINE 10 MG TABLET. PO PRN ×2 (08:34→20:50)
[2017-03-25] MEDS: amLODIPine BESYLATE 5 MG TABLET PO SCH (08:34)
[2017-03-25] MEDS: NICOTINE 14MG PATCH. TD SCH (08:34)
[2017-03-25] MEDS: IBUPROFEN 800 MG TABLET. PO SCH ×3 (08:38→20:50)
--- NOTE | 2017-03-25 09:52 | PDOC ---
PROGRESS NOTES Subjective Subjective She feels better with her back. 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 Assessment Assessment Problems Medical Problems: (1) Sciatica of right side Status: Acute Plan Plan of Care At her request,I have injected painful knee joints with marcaine and depomedrol solution and she tolerated the procedures satisfactorily.To get her lumbar corset and bilateral knee braces,roller walker and a manager group and she needs to move to an apartment where there are no stairs for her to manage. As he back pain is better with sacroiliac joint injection and previous lumbar ESIs did not help much,I don't think she needs lumbar ESIs now and with her knees and back pain and she being functionally independent with her mobility at roller walker level,I am concerned intensive rehab might irritate her back more than helping. Comment Review of Relevant I have reviewed the following items blake (where applicable) has been applied. Labs Laboratory Tests Test 03/25/17 07:50 Sodium Level 139 mmol/L (136-145) Potassium Level 4.0 mmol/L (3.5-5.1) Chloride Level 100 mmol/L (98-107) Carbon Dioxide Level 34 mmol/L (21-32) Anion Gap 5 (6-14) Blood Urea Nitrogen 11 mg/dL (7-20) Creatinine 0.8 mg/dL (0.6-1.0) Estimated GFR (Cockcroft-Gault) 87.7 Glucose Level 90 mg/dL (70-99) Calcium Level 9.5 mg/dL (8.5-10.1) Laboratory Tests Test 03/25/17 07:50 Sodium Level 139 mmol/L (136-145) Potassium Level 4.0 mmol/L (3.5-5.1) Chloride Level 100 mmol/L (98-107) Carbon Dioxide Level 34 mmol/L (21-32) Anion Gap 5 (6-14) Blood Urea Nitrogen 11 mg/dL (7-20) Creatinine 0.8 mg/dL (0.6-1.0) Estimated GFR (Cockcroft-Gault) 87.7 Glucose Level 90 mg/dL (70-99) Calcium Level 9.5 mg/dL (8.5-10.1) Microbiology 03/22/17 Urine Culture - Final, Complete 03/22/17 Urine Culture Result 1 (VERNA) - Final, Complete Medications Current Medications Hydromorphone HCl (Dilaudid) 1 mg 1X ONCE IM Last administered on 03/22/17 14 :55; Start 03/22/17 at 14:45; Stop 03/22/17 at 14:46; Status DC Prednisone (Prednisone) 50 mg 1X ONCE PO Last administered on 03/22/17 14:55 ; Start 03/22/17 at 14:45; Stop 03/22/17 at 14:46; Status DC Orphenadrine Citrate (Norflex) 60 mg 1X ONCE IM Last administered on 16:42; Start 03/22/17 at 16:30; Stop 03/22/17 at 16:31; Status DC Hydromorphone HCl (Dilaudid) 1 mg 1X ONCE IV ; Start 03/22/17 at 16:30; Stop at 17:08; Status DC Hydromorphone HCl (Dilaudid) 1 mg 1X ONCE IM Last administered on 03/22/17 17 :08; Start 03/22/17 at 17:15; Stop 03/22/17 at 17:16; Status DC Hydromorphone HCl (Dilaudid) 1 mg 1X ONCE IM ; Start 03/22/17 at 17:15; Stop at 17:16; Status DC Ondansetron HCl (Zofran) 4 mg PRN Q8HRS PRN IV NAUSEA/VOMITING; Start 03/22/17 at 19:45; Stop 03/23/17 at 19:44; Status DC Fentanyl Citrate (Fentanyl 2ml Vial) 50 mcg PRN Q2HR PRN IV PAIN Last administered on 03/23/17 09:22; Start 03/22/17 at 19:45; Stop 03/23/17 at 19:44 ; Status DC Acetaminophen (Tylenol) 650 mg PRN Q4HRS PRN PO FEVER Last administered on 03/23 05:29; Start 03/22/17 at 19:45; Stop 03/23/17 at 09:44; Status DC Ketorolac Tromethamine (Toradol) 15 mg 1X ONCE IV Last administered on 20:37; Start 03/22/17 at 19:45; Stop 03/22/17 at 19:46; Status DC Venlafaxine HCl (Effexor Xr) 225 mg DAILY PO Last administered on 03/25/17 08: 32; Start 03/23/17 at 09:00 Ibuprofen (Motrin) 800 mg PRN BID PRN PO INFLAMMATION Last administered on 03/23 09:21; Start 03/23/17 at 06:15; Stop 03/23/17 at 09:38; Status DC Famotidine (Pepcid) 40 mg PRN BID PRN PO HEARTBURN / GAS; Start 03/23/17 at 06: 15; Stop 03/23/17 at 09:38; Status DC Famotidine (Pepcid) 20 mg BID PO Last administered on 03/25/17 08:33; Start at 10:00 Ibuprofen (Motrin) 800 mg TID PO Last administered on 03/24/17 13:26; Start at 14:00 Senna/Docusate Sodium (Senna Plus) 2 tab QHS PO ; Start 03/23/17 at 21:00 Morphine Sulfate 4 mg PRN Q4HRS PRN IV PAIN; Start 03/23/17 at 09:30 Morphine Sulfate 2 mg PRN Q4HRS PRN IV PAIN; Start 03/23/17 at 09:30 Oxycodone HCl (Roxicodone) 5 mg PRN Q4HRS PRN PO PAIN Last administered on 03/23 20:55; Start 03/23/17 at 09:30 Oxycodone HCl (Roxicodone) 10 mg PRN Q4HRS PRN PO PAIN Last administered on 08:33; Start 03/23/17 at 09:30 Multivitamins (Thera M Plus) 1 tab DAILY PO Last administered on 03/25/17 08: 31; Start 03/23/17 at 10:00 Trazodone HCl (Desyrel) 50 mg PRN QHS PRN PO INSOMNIA; Start 03/23/17 at 09:30 Vitamin D (Vitamin D3) 1,000 unit DAILY PO Last administered on 03/25/17 08:32 ; Start 03/23/17 at 10:00 Acetaminophen (Tylenol) 650 mg PRN Q6HRS PRN PO MILD PAIN / TEMP; Start at 09:30 Magnesium Hydroxide (Milk Of Magnesia) 2,400 mg PRN DAILY PRN PO CONSTIPATION; Start 03/23/17 at 09:30 Amlodipine Besylate (Norvasc) 5 mg DAILY PO Last administered on 03/25/17 08: 34; Start 03/23/17 at 10:00 Cyclobenzaprine HCl (Flexeril) 10 mg PRN TID PRN PO MUSCLE SPASMS Last administered on 03/25/17 08:34; Start 03/23/17 at 10:00 Nicotine (Nicoderm Cq 14mg) 1 patch DAILY TD Last administered on 03/25/17 08: 34; Start 03/23/17 at 11:00 Methylprednisolone Acetate (DEPO-Medrol 40MG VIAL) 40 mg 1X ONCE IM Last administered on 03/23/17 12:15; Start 03/23/17 at 12:15; Stop 03/23/17 at 12:16 ; Status DC Methylprednisolone Acetate (DEPO-Medrol 40MG VIAL) 40 mg 1X ONCE IM Last administered on 03/23/17 12:15; Start 03/23/17 at 12:15; Stop 03/23/17 at 12:16 ; Status DC Methylprednisolone Acetate (DEPO-Medrol 40MG VIAL) 40 mg 1X ONCE IM Last administered on 03/23/17 12:15; Start 03/23/17 at 12:15; Stop 03/23/17 at 12:16 ; Status DC Bupivacaine HCl (Sensorcaine-Mpf 0.25%) 10 ml 1X ONCE IJ Last administered on 03/23/17 12:15; Start 03/23/17 at 12:15; Stop 03/23/17 at 12:16; Status DC Active Scripts Active Reported Ibuprofen 800 Mg Tablet 800 Mg PO PRN BID PRN Ranitidine Hcl 300 Mg Capsule 1 Cap PO PRN BID PRN Effexor Xr (Venlafaxine Hcl) 75 Mg Cap.er.24h 3 Cap PO DAILY Vitals/I & O Vital Sign - Last 24 Hours 03/24/17 03/24/17 03/24/17 03/24/17 11:00 14:40 15:06 19:00 Temp 98.1 98.1 98.3 98.1 98.1 98.3 Pulse 79 74 87 Resp 20 20 18 B/P (MAP) 144/91 (108) 135/87 (103) 140/87 (104) Pulse Ox 99 99 98 O2 Delivery Room Air Room Air Room Air Room Air 03/24/17 03/24/17 03/24/17 03/25/17 19:52 23:00 23:45 03:00 Temp 97.7 98.0 97.7 98.0 Pulse 79 74 Resp 20 19 B/P (MAP) 163/93 (116) 132/73 (92) Pulse Ox 97 98 95 O2 Delivery Room Air Room Air Room Air Room Air 03/25/17 03/25/17 03/25/17 03/25/17 04:07 05:09 07:00 08:33 Temp 97.7 97.7 Pulse 82 Resp 20 B/P (MAP) 148/97 (114) Pulse Ox 95 95 97 O2 Delivery Room Air Room Air Room Air Room Air 03/25/17 08:34 Pulse 82 B/P (MAP) 148/97 Intake and Output 03/25/17 03/25/17 03/26/17 15:00 23:00 07:00 Intake Total 300 ml Balance 300 ml BOB GUADARRAMA MD Mar 25, 2017 09:51
--- NOTE | 2017-03-25 10:29 | PDOC ---
PROGRESS NOTES Subjective Subjective pain in lower back and sciatica still painful but better. blood pressure is better. Objective Objective Vital Signs Date Time Temp Pulse Resp B/P (MAP) Pulse Ox O2 Delivery O2 Flow Rate FiO2 03/25/17 09:33 Room Air 03/25/17 08:34 82 148/97 03/25/17 07:00 97.7 20 97 97.7 Intake and Output 03/26/17 07:00 Intake Total 300 ml Balance 300 ml Intake Oral 300 ml Physical Exam Abdomen: Soft Heart: Regular rate, Normal S1, Normal S2 Extremities: No edema General: Alert HEENT: Atraumatic Lungs: Clear to auscultation Neuro: Normal speech Psych/Mental Status: Mental status NL Skin: No rashes Assessment Assessment Problems1. Lumbar spinal stenosis with intractable low back pain and right lumbar radiculopathy 2. Gastroesophageal reflux disease. 3. Hypertension. Medical Problems: (1) Sciatica of right side Status: Acute Plan Plan of Care continue narcotic analgesics. iv morphine or oxycodone continue ibuprofen continue PT anticipate LESI later today anticipate dismissal tomorrow Comment Review of Relevant I have reviewed the following items blake (where applicable) has been applied. Labs Laboratory Tests Test 03/25/17 07:50 Sodium Level 139 mmol/L (136-145) Potassium Level 4.0 mmol/L (3.5-5.1) Chloride Level 100 mmol/L (98-107) Carbon Dioxide Level 34 mmol/L (21-32) Anion Gap 5 (6-14) Blood Urea Nitrogen 11 mg/dL (7-20) Creatinine 0.8 mg/dL (0.6-1.0) Estimated GFR (Cockcroft-Gault) 87.7 Glucose Level 90 mg/dL (70-99) Calcium Level 9.5 mg/dL (8.5-10.1) Laboratory Tests Test 03/25/17 07:50 Sodium Level 139 mmol/L (136-145) Potassium Level 4.0 mmol/L (3.5-5.1) Chloride Level 100 mmol/L (98-107) Carbon Dioxide Level 34 mmol/L (21-32) Anion Gap 5 (6-14) Blood Urea Nitrogen 11 mg/dL (7-20) Creatinine 0.8 mg/dL (0.6-1.0) Estimated GFR (Cockcroft-Gault) 87.7 Glucose Level 90 mg/dL (70-99) Calcium Level 9.5 mg/dL (8.5-10.1) Microbiology 03/22/17 Urine Culture - Final, Complete 03/22/17 Urine Culture Result 1 (VERNA) - Final, Complete Medications Current Medications Hydromorphone HCl (Dilaudid) 1 mg 1X ONCE IM Last administered on 03/22/17 14 :55; Start 03/22/17 at 14:45; Stop 03/22/17 at 14:46; Status DC Prednisone (Prednisone) 50 mg 1X ONCE PO Last administered on 03/22/17 14:55 ; Start 03/22/17 at 14:45; Stop 03/22/17 at 14:46; Status DC Orphenadrine Citrate (Norflex) 60 mg 1X ONCE IM Last administered on 16:42; Start 03/22/17 at 16:30; Stop 03/22/17 at 16:31; Status DC Hydromorphone HCl (Dilaudid) 1 mg 1X ONCE IV ; Start 03/22/17 at 16:30; Stop at 17:08; Status DC Hydromorphone HCl (Dilaudid) 1 mg 1X ONCE IM Last administered on 03/22/17 17 :08; Start 03/22/17 at 17:15; Stop 03/22/17 at 17:16; Status DC Hydromorphone HCl (Dilaudid) 1 mg 1X ONCE IM ; Start 03/22/17 at 17:15; Stop at 17:16; Status DC Ondansetron HCl (Zofran) 4 mg PRN Q8HRS PRN IV NAUSEA/VOMITING; Start 03/22/17 at 19:45; Stop 03/23/17 at 19:44; Status DC Fentanyl Citrate (Fentanyl 2ml Vial) 50 mcg PRN Q2HR PRN IV PAIN Last administered on 03/23/17 09:22; Start 03/22/17 at 19:45; Stop 03/23/17 at 19:44 ; Status DC Acetaminophen (Tylenol) 650 mg PRN Q4HRS PRN PO FEVER Last administered on 03/23 05:29; Start 03/22/17 at 19:45; Stop 03/23/17 at 09:44; Status DC Ketorolac Tromethamine (Toradol) 15 mg 1X ONCE IV Last administered on 20:37; Start 03/22/17 at 19:45; Stop 03/22/17 at 19:46; Status DC Venlafaxine HCl (Effexor Xr) 225 mg DAILY PO Last administered on 03/25/17 08: 32; Start 03/23/17 at 09:00 Ibuprofen (Motrin) 800 mg PRN BID PRN PO INFLAMMATION Last administered on 03/23 09:21; Start 03/23/17 at 06:15; Stop 03/23/17 at 09:38; Status DC Famotidine (Pepcid) 40 mg PRN BID PRN PO HEARTBURN / GAS; Start 03/23/17 at 06: 15; Stop 03/23/17 at 09:38; Status DC Famotidine (Pepcid) 20 mg BID PO Last administered on 03/25/17 08:33; Start at 10:00 Ibuprofen (Motrin) 800 mg TID PO Last administered on 03/24/17 13:26; Start at 14:00 Senna/Docusate Sodium (Senna Plus) 2 tab QHS PO ; Start 03/23/17 at 21:00 Morphine Sulfate 4 mg PRN Q4HRS PRN IV PAIN; Start 03/23/17 at 09:30 Morphine Sulfate 2 mg PRN Q4HRS PRN IV PAIN; Start 03/23/17 at 09:30 Oxycodone HCl (Roxicodone) 5 mg PRN Q4HRS PRN PO PAIN Last administered on 03/23 20:55; Start 03/23/17 at 09:30 Oxycodone HCl (Roxicodone) 10 mg PRN Q4HRS PRN PO PAIN Last administered on 08:33; Start 03/23/17 at 09:30 Multivitamins (Thera M Plus) 1 tab DAILY PO Last administered on 03/25/17 08: 31; Start 03/23/17 at 10:00 Trazodone HCl (Desyrel) 50 mg PRN QHS PRN PO INSOMNIA; Start 03/23/17 at 09:30 Vitamin D (Vitamin D3) 1,000 unit DAILY PO Last administered on 03/25/17 08:32 ; Start 03/23/17 at 10:00 Acetaminophen (Tylenol) 650 mg PRN Q6HRS PRN PO MILD PAIN / TEMP; Start at 09:30 Magnesium Hydroxide (Milk Of Magnesia) 2,400 mg PRN DAILY PRN PO CONSTIPATION; Start 03/23/17 at 09:30 Amlodipine Besylate (Norvasc) 5 mg DAILY PO Last administered on 03/25/17 08: 34; Start 03/23/17 at 10:00 Cyclobenzaprine HCl (Flexeril) 10 mg PRN TID PRN PO MUSCLE SPASMS Last administered on 03/25/17 08:34; Start 03/23/17 at 10:00 Nicotine (Nicoderm Cq 14mg) 1 patch DAILY TD Last administered on 03/25/17 08: 34; Start 03/23/17 at 11:00 Methylprednisolone Acetate (DEPO-Medrol 40MG VIAL) 40 mg 1X ONCE IM Last administered on 03/23/17 12:15; Start 03/23/17 at 12:15; Stop 03/23/17 at 12:16 ; Status DC Methylprednisolone Acetate (DEPO-Medrol 40MG VIAL) 40 mg 1X ONCE IM Last administered on 03/23/17 12:15; Start 03/23/17 at 12:15; Stop 03/23/17 at 12:16 ; Status DC Methylprednisolone Acetate (DEPO-Medrol 40MG VIAL) 40 mg 1X ONCE IM Last administered on 03/23/17 12:15; Start 03/23/17 at 12:15; Stop 03/23/17 at 12:16 ; Status DC Bupivacaine HCl (Sensorcaine-Mpf 0.25%) 10 ml 1X ONCE IJ Last administered on 03/23/17 12:15; Start 03/23/17 at 12:15; Stop 03/23/17 at 12:16; Status DC Active Scripts Active Reported Ibuprofen 800 Mg Tablet 800 Mg PO PRN BID PRN Ranitidine Hcl 300 Mg Capsule 1 Cap PO PRN BID PRN Effexor Xr (Venlafaxine Hcl) 75 Mg Cap.er.24h 3 Cap PO DAILY Vitals/I & O Vital Sign - Last 24 Hours 9/2403/24/17 03/24/17 03/24/17 11:00 14:40 15:06 19:00 Temp 98.1 98.1 98.3 98.1 98.1 98.3 Pulse 79 74 87 Resp 20 20 18 B/P (MAP) 144/91 (108) 135/87 (103) 140/87 (104) Pulse Ox 99 99 98 O2 Delivery Room Air Room Air Room Air Room Air 03/24/17 03/24/17 03/24/17 03/25/17 19:52 23:00 23:45 03:00 Temp 97.7 98.0 97.7 98.0 Pulse 79 74 Resp 20 19 B/P (MAP) 163/93 (116) 132/73 (92) Pulse Ox 97 98 95 O2 Delivery Room Air Room Air Room Air Room Air 03/25/17 03/25/17 03/25/17 03/25/17 04:07 05:09 07:00 08:33 Temp 97.7 97.7 Pulse 82 Resp 20 B/P (MAP) 148/97 (114) Pulse Ox 95 95 97 O2 Delivery Room Air Room Air Room Air 03/25/17 03/25/17 08:34 09:33 Pulse 82 B/P (MAP) 148/97 O2 Delivery Room Air Intake and Output 03/25/17 03/25/17 03/26/17 15:00 23:00 07:00 Intake Total 300 ml Balance 300 ml MARCELA KWOK MD Mar 25, 2017 10:29
--- NOTE | 2017-03-25 11:05 | PDOC ---
SUBJECTIVE Subjective low back and right leg pain OBJECTIVE Objective The patient is a 61-year-old woman who has a long history of low back pain as well as episodes of right-sided radiculopathy. She received epidural steroid injections for a similar problem, although not quite as severe, a couple of years ago without significant benefit. She did say that she improved, but has had continued difficulty with some pain in her back and right leg. Pain radiating into her right leg and she feels like there are a pins and needles sensation in her right foot. She had difficulty ambulating. She did undergo a CT scan of the lumbar spine recently in which spinal stenosis was seen. Since she has been hospitalized, she feels as though her pain control has improved. She continues to have difficulty with walking. She does not notice weakness in her leg, but says that there is numbness in her right foot. She does not notice any bowel or bladder difficulty. Vital Signs Vital Signs Date Time Temp Pulse Resp B/P (MAP) Pulse Ox O2 Delivery O2 Flow Rate FiO2 03/25/17 09:33 Room Air 03/25/17 08:34 82 148/97 03/25/17 08:33 Room Air 03/25/17 07:00 97.7 82 20 148/97 (114) 97 Room Air 97.7 03/25/17 05:09 95 03/25/17 04:07 95 Room Air 03/25/17 03:00 98.0 74 19 132/73 (92) 95 Room Air 98.0 03/24/17 23:45 98 Room Air 03/24/17 23:00 97.7 79 20 163/93 (116) 97 Room Air 97.7 03/24/17 19:52 Room Air 03/24/17 19:00 98.3 87 18 140/87 (104) 98 Room Air 98.3 03/24/17 15:06 98.1 74 20 135/87 (103) 99 Room Air 98.1 03/24/17 14:40 Room Air I & O Intake and Output 03/26/17 07:00 Intake Total 300 ml Balance 300 ml Intake Oral 300 ml ASSESSMENT/PLAN Assessment/Plan 61yo with low back pain and right radiculopathy- improved after SI injection Pt. wishes to hold on any further interventions at this time.May f/u as O.P. if desired Problems: COMMENT Lab Laboratory Tests Test 03/25/17 07:50 Sodium Level 139 mmol/L (136-145) Potassium Level 4.0 mmol/L (3.5-5.1) Chloride Level 100 mmol/L (98-107) Carbon Dioxide Level 34 mmol/L (21-32) Anion Gap 5 (6-14) Blood Urea Nitrogen 11 mg/dL (7-20) Creatinine 0.8 mg/dL (0.6-1.0) Estimated GFR (Cockcroft-Gault) 87.7 Glucose Level 90 mg/dL (70-99) Calcium Level 9.5 mg/dL (8.5-10.1) AMEE LEDEZMA MD Mar 25, 2017 11:05
[2017-03-25] MEDS: SENNOSIDES/DOCUSATE 8.6/50MG TABLET. PO SCH (20:53)
[2017-03-26 03:20] VITALS: BP 145/88
[2017-03-26 07:00] VITALS: BP 159/95
[2017-03-26] MEDS: oxyCODONE IR 5 MG TABLET PO PRN ×3 (07:46→16:35)
[2017-03-26] MEDS ORDERED: methylPREDNISolone ACETATE 40 MG/ML VIAL. ONE (08:10)
[2017-03-26] MEDS ORDERED: methylPREDNISolone ACETATE 80 MG/ML VIAL. ONE (08:10)
[2017-03-26] MEDS ORDERED: FLU VACC QS2017-18 (36MOS+)/PF 0.5 ML SYRINGE. VAX IM ONE (09:00)
[2017-03-26] MEDS: IBUPROFEN 800 MG TABLET. PO SCH ×2 (09:20→13:30)
[2017-03-26] MEDS: FAMOTIDINE 20 MG TABLET. PO SCH (09:21)
[2017-03-26] MEDS: MULTIVITAMIN with MINERAL TABLET. PO SCH (09:21)
[2017-03-26] MEDS: CHOLECALCIFEROL (VITAMIN D3) 1,000 UNIT TABLET PO SCH (09:21)
[2017-03-26] MEDS: VENLAFAXINE XR 37.5 MG CAP.ER.24H. PO SCH (09:22)
[2017-03-26] MEDS: NICOTINE 14MG PATCH. TD SCH (09:23)
[2017-03-26] MEDS: amLODIPine BESYLATE 5 MG TABLET PO SCH (09:25)
--- NOTE | 2017-03-26 09:37 | PDOC ---
PROGRESS NOTES Subjective Subjective received LESI today. bp high and will add hctz. wants to go to SNF. still with LBP and sciatica. Objective Objective Vital Signs Date Time Temp Pulse Resp B/P (MAP) Pulse Ox O2 Delivery O2 Flow Rate FiO2 03/26/17 09:25 76 159/95 03/26/17 09:22 Nasal Cannula 03/26/17 07:46 20 03/26/17 07:00 97.7 98 97.7 Physical Exam Abdomen: Soft Heart: Regular rate, Normal S1, Normal S2 Extremities: No edema General: Alert HEENT: Atraumatic Lungs: Clear to auscultation Neuro: Normal speech Psych/Mental Status: Mental status NL Skin: No rashes Assessment Assessment Problems1. Lumbar spinal stenosis with intractable low back pain and right lumbar radiculopathy 2. Gastroesophageal reflux disease. 3. Hypertension. Medical Problems: (1) Sciatica of right side Status: Acute Plan Plan of Care SNF screen PT and OT start hctz and continue amlodipine continue analgesics and nsaid Comment Review of Relevant I have reviewed the following items blake (where applicable) has been applied. Labs Laboratory Tests Test 03/25/17 07:50 Sodium Level 139 mmol/L (136-145) Potassium Level 4.0 mmol/L (3.5-5.1) Chloride Level 100 mmol/L (98-107) Carbon Dioxide Level 34 mmol/L (21-32) Anion Gap 5 (6-14) Blood Urea Nitrogen 11 mg/dL (7-20) Creatinine 0.8 mg/dL (0.6-1.0) Estimated GFR (Cockcroft-Gault) 87.7 Glucose Level 90 mg/dL (70-99) Calcium Level 9.5 mg/dL (8.5-10.1) Microbiology 03/22/17 Urine Culture - Final, Complete 03/22/17 Urine Culture Result 1 (VERNA) - Final, Complete Medications Current Medications Hydromorphone HCl (Dilaudid) 1 mg 1X ONCE IM Last administered on 03/22/17 14 :55; Start 03/22/17 at 14:45; Stop 03/22/17 at 14:46; Status DC Prednisone (Prednisone) 50 mg 1X ONCE PO Last administered on 03/22/17 14:55 ; Start 03/22/17 at 14:45; Stop 03/22/17 at 14:46; Status DC Orphenadrine Citrate (Norflex) 60 mg 1X ONCE IM Last administered on 16:42; Start 03/22/17 at 16:30; Stop 03/22/17 at 16:31; Status DC Hydromorphone HCl (Dilaudid) 1 mg 1X ONCE IV ; Start 03/22/17 at 16:30; Stop at 17:08; Status DC Hydromorphone HCl (Dilaudid) 1 mg 1X ONCE IM Last administered on 03/22/17 17 :08; Start 03/22/17 at 17:15; Stop 03/22/17 at 17:16; Status DC Hydromorphone HCl (Dilaudid) 1 mg 1X ONCE IM ; Start 03/22/17 at 17:15; Stop at 17:16; Status DC Ondansetron HCl (Zofran) 4 mg PRN Q8HRS PRN IV NAUSEA/VOMITING; Start 03/22/17 at 19:45; Stop 03/23/17 at 19:44; Status DC Fentanyl Citrate (Fentanyl 2ml Vial) 50 mcg PRN Q2HR PRN IV PAIN Last administered on 03/23/17 09:22; Start 03/22/17 at 19:45; Stop 03/23/17 at 19:44 ; Status DC Acetaminophen (Tylenol) 650 mg PRN Q4HRS PRN PO FEVER Last administered on 03/23 05:29; Start 03/22/17 at 19:45; Stop 03/23/17 at 09:44; Status DC Ketorolac Tromethamine (Toradol) 15 mg 1X ONCE IV Last administered on 20:37; Start 03/22/17 at 19:45; Stop 03/22/17 at 19:46; Status DC Venlafaxine HCl (Effexor Xr) 225 mg DAILY PO Last administered on 03/26/17 09: 22; Start 03/23/17 at 09:00 Ibuprofen (Motrin) 800 mg PRN BID PRN PO INFLAMMATION Last administered on 03/23 09:21; Start 03/23/17 at 06:15; Stop 03/23/17 at 09:38; Status DC Famotidine (Pepcid) 40 mg PRN BID PRN PO HEARTBURN / GAS; Start 03/23/17 at 06: 15; Stop 03/23/17 at 09:38; Status DC Famotidine (Pepcid) 20 mg BID PO Last administered on 03/26/17 09:21; Start at 10:00 Ibuprofen (Motrin) 800 mg TID PO Last administered on 03/26/17 09:20; Start at 14:00 Senna/Docusate Sodium (Senna Plus) 2 tab QHS PO ; Start 03/23/17 at 21:00 Morphine Sulfate 4 mg PRN Q4HRS PRN IV PAIN; Start 03/23/17 at 09:30 Morphine Sulfate 2 mg PRN Q4HRS PRN IV PAIN; Start 03/23/17 at 09:30 Oxycodone HCl (Roxicodone) 5 mg PRN Q4HRS PRN PO PAIN Last administered on 03/26 09:22; Start 03/23/17 at 09:30 Oxycodone HCl (Roxicodone) 10 mg PRN Q4HRS PRN PO PAIN Last administered on 07:46; Start 03/23/17 at 09:30 Multivitamins (Thera M Plus) 1 tab DAILY PO Last administered on 03/26/17 09: 21; Start 03/23/17 at 10:00 Trazodone HCl (Desyrel) 50 mg PRN QHS PRN PO INSOMNIA; Start 03/23/17 at 09:30 Vitamin D (Vitamin D3) 1,000 unit DAILY PO Last administered on 03/26/17 09:21 ; Start 03/23/17 at 10:00 Acetaminophen (Tylenol) 650 mg PRN Q6HRS PRN PO MILD PAIN / TEMP; Start at 09:30 Magnesium Hydroxide (Milk Of Magnesia) 2,400 mg PRN DAILY PRN PO CONSTIPATION; Start 03/23/17 at 09:30 Amlodipine Besylate (Norvasc) 5 mg DAILY PO Last administered on 03/26/17 09: 25; Start 03/23/17 at 10:00 Cyclobenzaprine HCl (Flexeril) 10 mg PRN TID PRN PO MUSCLE SPASMS Last administered on 03/25/17 20:50; Start 03/23/17 at 10:00 Nicotine (Nicoderm Cq 14mg) 1 patch DAILY TD Last administered on 03/26/17 09: 23; Start 03/23/17 at 11:00 Methylprednisolone Acetate (DEPO-Medrol 40MG VIAL) 40 mg 1X ONCE IM Last administered on 03/23/17 12:15; Start 03/23/17 at 12:15; Stop 03/23/17 at 12:16 ; Status DC Methylprednisolone Acetate (DEPO-Medrol 40MG VIAL) 40 mg 1X ONCE IM Last administered on 03/23/17 12:15; Start 03/23/17 at 12:15; Stop 03/23/17 at 12:16 ; Status DC Methylprednisolone Acetate (DEPO-Medrol 40MG VIAL) 40 mg 1X ONCE IM Last administered on 03/23/17 12:15; Start 03/23/17 at 12:15; Stop 03/23/17 at 12:16 ; Status DC Bupivacaine HCl (Sensorcaine-Mpf 0.25%) 10 ml 1X ONCE IJ Last administered on 03/23/17 12:15; Start 03/23/17 at 12:15; Stop 03/23/17 at 12:16; Status DC Influenza Virus Vaccine Quadrival (Fluarix Quad 0022-1297 Syringe) 0.5 ml ONCE ONCE VAX IM ; Start 03/26/17 at 09:00; Stop 03/26/17 at 09:01; Status DC Methylprednisolone Acetate (DEPO-Medrol 40MG VIAL) 40 mg STK-MED ONCE .ROUTE ; Start 03/26/17 at 08:10; Stop 03/26/17 at 08:11; Status DC Methylprednisolone Acetate (DEPO-Medrol 80MG VIAL) 80 mg STK-MED ONCE .ROUTE ; Start 03/26/17 at 08:10; Stop 03/26/17 at 08:11; Status DC Hydrochlorothiazide (Hydrodiuril) 25 mg DAILY PO ; Start 03/26/17 at 10:00 Active Scripts Active Reported Ibuprofen 800 Mg Tablet 800 Mg PO PRN BID PRN Ranitidine Hcl 300 Mg Capsule 1 Cap PO PRN BID PRN Effexor Xr (Venlafaxine Hcl) 75 Mg Cap.er.24h 3 Cap PO DAILY Vitals/I & O Vital Sign - Last 24 Hours 03/25/17 03/25/17 03/25/17 03/25/17 11:00 11:08 14:52 19:00 Temp 97.8 97.7 97.5 97.8 97.7 97.5 Pulse 86 89 97 Resp 20 20 20 B/P (MAP) 128/72 (90) 151/77 (101) 144/88 (106) Pulse Ox 100 96 96 O2 Delivery Room Air Room Air Room Air Room Air 03/25/17 03/25/17 03/25/17 03/26/17 20:20 20:52 23:00 03:20 Temp 97.5 97.7 97.5 97.7 Pulse 90 76 Resp 20 20 20 B/P (MAP) 155/98 (117) 145/88 (107) Pulse Ox 96 96 O2 Delivery Room Air Room Air Room Air Room Air 03/26/17 03/26/17 03/26/17 03/26/17 07:00 07:46 08:46 09:22 Temp 97.7 97.7 Pulse 76 Resp 20 20 B/P (MAP) 159/95 (116) Pulse Ox 98 O2 Delivery Room Air Room Air Room Air Nasal Cannula 03/26/17 09:25 Pulse 76 B/P (MAP) 159/95 MARCELA KWOK MD Mar 26, 2017 09:37
--- NOTE | 2017-03-26 09:46 | PDOC ---
Provider Note Provider Note discharge summary dictated # [id number] MARECLA KWOK MD Mar 26, 2017 09:46
[2017-03-26] MEDS ORDERED: hydroCHLOROthiazide 25 MG TABLET PO SCH (10:00)
[2017-03-26 11:00] VITALS: BP 144/79
--- NOTE | 2017-03-26 12:30 | DS ---
DATE OF DISCHARGE: 03/26/2017 DATE OF ADMISSION: 03/22/2017 DATE OF DISCHARGE: 03/26/2017 CONSULTANTS: Dr. Mason, Dr. Benjamin Lopez, and Dr. Link. PROCEDURE: Lumbar epidural steroid injection and also steroid injection by Dr. Mason. FINAL DIAGNOSES: 1. Lumbar spondylosis with spinal stenosis and right-sided lumbar radiculopathy. 2. Mobility and self-care deficits secondary to back pain and sciatica. 3. Gastroesophageal reflux disease. 4. Hypertension. HOSPITAL COURSE: The patient is a 61-year-old -[place] female with a history of low back pain and right-sided sciatica intermittently for 1-2 years. She did receive a lumbar epidural steroid injection 1-2 years ago without benefit. She has being continuing to have intermittent pain and sciatica down the right leg since that time and then on 03/18/2017, the symptoms worsened without any injury or trauma, developing intractable low back pain and sciatica down the right leg all the way down the right foot with a [id number] sensation. She had mobility and self-care deficits at home and could not get up because of the severe pain, sought help the [facility] Room on 03/22/2017 when a CAT scan of the lumbosacral spine showed that she had moderate to severe spinal stenosis at L3-L4 and L4-L5. She also had an MRI of the lumbar spine, which showed similar findings. She was seen in consultation by Dr. Mason for physical rehabilitation, Dr. Link for Neurosurgery, Dr. Benjamin Lopez from the pain clinic. She had some steroid injection by Dr. Mason, had a lumbar epidural steroid injection today by Dr. Benjamin Lopez in the pain clinic, seen by Dr. Link, but the patient declined any type of surgical intervention. She was able to ambulate to some extent to the bathroom with her walker, but still had significant mobility and self-care deficits, lives in a third floor apartment ____. She will need to go to a shelter facility for further evaluation and treatment. Her blood pressure was elevated and she was started on amlodipine and hydrochlorothiazide. She received physical and occupational therapy, received ibuprofen, p.r.n. Flexeril and narcotic analgesics p.r.n. She received morphine sulfate 2-4 mg IV every 4 hours p.r.n. and Oxycodone 5-10 mg every 4 hours p.r.n. DISCHARGE DISPOSITION: She will be dismissed to a shelter facility hopefully today. DISCHARGE MEDICATIONS: Tylenol 650 mg every 4 hours p.r.n., vitamin D 1000 units every day, Flexeril 10 mg t.i.d. p.r.n., Pepcid 20 mg b.i.d., ibuprofen 800 mg t.i.d., milk of magnesia 30 mL every day p.r.n., hydrochlorothiazide 25 mg every day, multiple vitamin once a day, nicotine 14 mg per day patch as she smokes half a pack of cigarettes a day prior to admission, Senokot-S 2 tablets at bedtime, Effexor XR 225 mg every day, amlodipine 5 mg every day, hydrochlorothiazide as mentioned 25 mg every day, oxycodone 5-10 mg every 4 hours p.r.n., 30 tablets, no refill, of the 5 mg dose and trazodone 50 mg at bedtime p.r.n. MARCELA KWOK MD DR: Orquidea JOB#: [id number] / [id number]
--- NOTE | 2017-03-26 14:08 | PDOC ---
PROGRESS NOTES Subjective Subjective She feels better. Objective Objective Vital Signs Date Time Temp Pulse Resp B/P (MAP) Pulse Ox O2 Delivery O2 Flow Rate FiO2 03/26/17 11:00 97.5 66 20 144/79 (100) 97 Room Air 97.5 Physical Exam Physical Exam She remains independent with her mobility at roller walker level. Assessment Assessment Problems Medical Problems: (1) Sciatica of right side Status: Acute Plan Plan of Care Agree with plans for home whrn medically stable and advised her to try to move to an apartment without stairs soon. Comment Review of Relevant I have reviewed the following items blake (where applicable) has been applied. Labs Laboratory Tests Test 03/25/17 07:50 Sodium Level 139 mmol/L (136-145) Potassium Level 4.0 mmol/L (3.5-5.1) Chloride Level 100 mmol/L (98-107) Carbon Dioxide Level 34 mmol/L (21-32) Anion Gap 5 (6-14) Blood Urea Nitrogen 11 mg/dL (7-20) Creatinine 0.8 mg/dL (0.6-1.0) Estimated GFR (Cockcroft-Gault) 87.7 Glucose Level 90 mg/dL (70-99) Calcium Level 9.5 mg/dL (8.5-10.1) Microbiology 03/22/17 Urine Culture - Final, Complete 03/22/17 Urine Culture Result 1 (VERNA) - Final, Complete Medications Current Medications Hydromorphone HCl (Dilaudid) 1 mg 1X ONCE IM Last administered on 03/22/17 14 :55; Start 03/22/17 at 14:45; Stop 03/22/17 at 14:46; Status DC Prednisone (Prednisone) 50 mg 1X ONCE PO Last administered on 03/22/17 14:55 ; Start 03/22/17 at 14:45; Stop 03/22/17 at 14:46; Status DC Orphenadrine Citrate (Norflex) 60 mg 1X ONCE IM Last administered on 16:42; Start 03/22/17 at 16:30; Stop 03/22/17 at 16:31; Status DC Hydromorphone HCl (Dilaudid) 1 mg 1X ONCE IV ; Start 03/22/17 at 16:30; Stop at 17:08; Status DC Hydromorphone HCl (Dilaudid) 1 mg 1X ONCE IM Last administered on 03/22/17 17 :08; Start 03/22/17 at 17:15; Stop 03/22/17 at 17:16; Status DC Hydromorphone HCl (Dilaudid) 1 mg 1X ONCE IM ; Start 03/22/17 at 17:15; Stop at 17:16; Status DC Ondansetron HCl (Zofran) 4 mg PRN Q8HRS PRN IV NAUSEA/VOMITING; Start 03/22/17 at 19:45; Stop 03/23/17 at 19:44; Status DC Fentanyl Citrate (Fentanyl 2ml Vial) 50 mcg PRN Q2HR PRN IV PAIN Last administered on 03/23/17 09:22; Start 03/22/17 at 19:45; Stop 03/23/17 at 19:44 ; Status DC Acetaminophen (Tylenol) 650 mg PRN Q4HRS PRN PO FEVER Last administered on 03/23 05:29; Start 03/22/17 at 19:45; Stop 03/23/17 at 09:44; Status DC Ketorolac Tromethamine (Toradol) 15 mg 1X ONCE IV Last administered on 20:37; Start 03/22/17 at 19:45; Stop 03/22/17 at 19:46; Status DC Venlafaxine HCl (Effexor Xr) 225 mg DAILY PO Last administered on 03/26/17 09: 22; Start 03/23/17 at 09:00 Ibuprofen (Motrin) 800 mg PRN BID PRN PO INFLAMMATION Last administered on 03/23 09:21; Start 03/23/17 at 06:15; Stop 03/23/17 at 09:38; Status DC Famotidine (Pepcid) 40 mg PRN BID PRN PO HEARTBURN / GAS; Start 03/23/17 at 06: 15; Stop 03/23/17 at 09:38; Status DC Famotidine (Pepcid) 20 mg BID PO Last administered on 03/26/17 09:21; Start at 10:00 Ibuprofen (Motrin) 800 mg TID PO Last administered on 03/26/17 13:30; Start at 14:00 Senna/Docusate Sodium (Senna Plus) 2 tab QHS PO ; Start 03/23/17 at 21:00 Morphine Sulfate 4 mg PRN Q4HRS PRN IV PAIN; Start 03/23/17 at 09:30 Morphine Sulfate 2 mg PRN Q4HRS PRN IV PAIN; Start 03/23/17 at 09:30 Oxycodone HCl (Roxicodone) 5 mg PRN Q4HRS PRN PO PAIN Last administered on 03/26 09:22; Start 03/23/17 at 09:30 Oxycodone HCl (Roxicodone) 10 mg PRN Q4HRS PRN PO PAIN Last administered on 07:46; Start 03/23/17 at 09:30 Multivitamins (Thera M Plus) 1 tab DAILY PO Last administered on 03/26/17 09: 21; Start 03/23/17 at 10:00 Trazodone HCl (Desyrel) 50 mg PRN QHS PRN PO INSOMNIA; Start 03/23/17 at 09:30 Vitamin D (Vitamin D3) 1,000 unit DAILY PO Last administered on 03/26/17 09:21 ; Start 03/23/17 at 10:00 Acetaminophen (Tylenol) 650 mg PRN Q6HRS PRN PO MILD PAIN / TEMP; Start at 09:30 Magnesium Hydroxide (Milk Of Magnesia) 2,400 mg PRN DAILY PRN PO CONSTIPATION; Start 03/23/17 at 09:30 Amlodipine Besylate (Norvasc) 5 mg DAILY PO Last administered on 03/26/17 09: 25; Start 03/23/17 at 10:00 Cyclobenzaprine HCl (Flexeril) 10 mg PRN TID PRN PO MUSCLE SPASMS Last administered on 03/25/17 20:50; Start 03/23/17 at 10:00 Nicotine (Nicoderm Cq 14mg) 1 patch DAILY TD Last administered on 03/26/17 09: 23; Start 03/23/17 at 11:00 Methylprednisolone Acetate (DEPO-Medrol 40MG VIAL) 40 mg 1X ONCE IM Last administered on 03/23/17 12:15; Start 03/23/17 at 12:15; Stop 03/23/17 at 12:16 ; Status DC Methylprednisolone Acetate (DEPO-Medrol 40MG VIAL) 40 mg 1X ONCE IM Last administered on 03/23/17 12:15; Start 03/23/17 at 12:15; Stop 03/23/17 at 12:16 ; Status DC Methylprednisolone Acetate (DEPO-Medrol 40MG VIAL) 40 mg 1X ONCE IM Last administered on 03/23/17 12:15; Start 03/23/17 at 12:15; Stop 03/23/17 at 12:16 ; Status DC Bupivacaine HCl (Sensorcaine-Mpf 0.25%) 10 ml 1X ONCE IJ Last administered on 03/23/17 12:15; Start 03/23/17 at 12:15; Stop 03/23/17 at 12:16; Status DC Influenza Virus Vaccine Quadrival (Fluarix Quad [id number] Syringe) 0.5 ml ONCE ONCE VAX IM ; Start 03/26/17 at 09:00; Stop 03/26/17 at 09:01; Status DC Methylprednisolone Acetate (DEPO-Medrol 40MG VIAL) 40 mg STK-MED ONCE .ROUTE ; Start 03/26/17 at 08:10; Stop 03/26/17 at 08:11; Status DC Methylprednisolone Acetate (DEPO-Medrol 80MG VIAL) 80 mg STK-MED ONCE .ROUTE ; Start 03/26/17 at 08:10; Stop 03/26/17 at 08:11; Status DC Hydrochlorothiazide (Hydrodiuril) 25 mg DAILY PO Last administered on 09:39; Start 03/26/17 at 10:00 Active Scripts Active Reported Ibuprofen 800 Mg Tablet 800 Mg PO PRN BID PRN Ranitidine Hcl 300 Mg Capsule 1 Cap PO PRN BID PRN Effexor Xr (Venlafaxine Hcl) 75 Mg Cap.er.24h 3 Cap PO DAILY Vitals/I & O Vital Sign - Last 24 Hours 03/25/17 03/25/17 03/25/17 03/25/17 14:52 19:00 20:20 20:52 Temp 97.7 97.5 97.7 97.5 Pulse 89 97 Resp 20 20 20 B/P (MAP) 151/77 (101) 144/88 (106) Pulse Ox 96 96 O2 Delivery Room Air Room Air Room Air Room Air 03/25/17 03/26/17 03/26/17 03/26/17 23:00 03:20 07:00 07:46 Temp 97.5 97.7 97.7 97.5 97.7 97.7 Pulse 90 76 76 Resp 20 20 20 20 B/P (MAP) 155/98 (117) 145/88 (107) 159/95 (116) Pulse Ox 96 96 98 O2 Delivery Room Air Room Air Room Air Room Air 03/26/17 03/26/17 03/26/17 03/26/17 08:46 09:22 09:25 10:22 Pulse 76 B/P (MAP) 159/95 O2 Delivery Room Air Nasal Cannula Room Air 03/26/17 11:00 Temp 97.5 97.5 Pulse 66 Resp 20 B/P (MAP) 144/79 (100) Pulse Ox 97 O2 Delivery Room Air BOB GUADARRAMA MD Mar 26, 2017 14:08
[2017-03-26 15:00] VITALS: BP 136/82
--- NOTE | 2017-03-26 16:55 | DISCH ---
DISCHARGE INSTRUCTIONS Condition on Discharge Condition on Discharge: Stable Activity After Discharge Activity Instructions for Disc: Resume previous activity Contacting the DRHellen after DC Call your doctor for: If your condition worsens Follow-Up Follow up with: dr. kwok next week MARCELA KWOK MD Mar 26, 2017 16:55
[2017-03-26] MEDS ORDERED: IBUP800T19 PO (16:58)
[2017-03-26] MEDS ORDERED: OXYC5TAB95 PO (16:58)
[2017-03-26] MEDS ORDERED: AMLO5TAB2 PO (16:58)
[2017-03-26] MEDS ORDERED: HYDR25TA9 PO (16:58)
== END 2017-03-26 18:45 | disposition home or self-care (01) | DRG 552 ==
LOC: ER 13:42 → 5 NORTH 20:11
PROVIDERS: ADMIT Internal Medicine; ATTEND Internal Medicine
PROC: 3E0R33Z Introduction of Anti-inflammatory into Spinal Canal, Percutaneous Approach (ICD-10-PCS; principal; 2017-03-26)
DX: M47.26 Other spondylosis with radiculopathy, lumbar region (principal); Z68.41 Body mass index [BMI] 40.0-44.9, adult; I10 Essential (primary) hypertension; M47.22 Other spondylosis with radiculopathy, cervical region; M48.06 Spinal stenosis, lumbar region; E66.9 Obesity, unspecified; F32.9 Major depressive disorder, single episode, unspecified; G56.03 Carpal tunnel syndrome, bilateral upper limbs; G89.29 Other chronic pain; K21.9 Gastro-esophageal reflux disease without esophagitis; M17.0 Bilateral primary osteoarthritis of knee; Z91.041 Radiographic dye allergy status; Z88.1 Allergy status to other antibiotic agents; Z88.8 Allergy status to other drugs, medicaments and biological substances; M54.41 Lumbago with sciatica, right side
CPT/HCPCS: 36415; 62323; 71010; 72131; 72141; 72148; 73565; 80048; 80053; 81001; 82962; 85025; 87086; 93005; 96372; J1030; J1040; J1170; J1885; J2360; J3010; J3490; J7512; 97116; 97530; 99285-25

== ENCOUNTER → 2019-08-17 | Outpatient (CLI) | payer MEDICARE, BC ==
[~2019-08-17] MED LIST: AMLO5TAB10 PO; HYDR-2145 PO; IBUP-1060 PO; IBUP800T19 PO; OXYC5TAB4 PO; RANI300C PO; VENL75CA PO; VENL75TA PO
--- NOTE | 2019-08-17 15:09 | RAD ---
Examination: CT CHEST WO CONTRAST History: Hemoptysis Comparison/Correlation: None Findings: Axial images of the chest were obtained without contrast. Sagittal and coronal reformatted images were provided. The tracheobronchial tree is unremarkable. No infiltrate or pleural effusion. Minimal lingular linear atelectasis is present. No suspicious pulmonary nodule or mass identified. There is a 0.3 cm diameter pulmonary nodule or residual lymph node about the minor fissure on axial image 27 of series 3. No enlarged thoracic lymph nodes. Small hiatal hernia is present. Fatty infiltration of the liver is present. Multilevel disc space narrowing of the thoracic spine is present and mild. Impression: No infiltrate or suspicious process. Fely hernia. Fatty infiltration of the liver. PQRS Compliance Statement: One or more of the following individualized dose reduction techniques were utilized for this examination: 1. Automated exposure control 2. Adjustment of the mA and/or kV according to patient size 3. Use of iterative reconstruction technique Electronically signed by: Asher Enriquez MD (08/17/2019 3:06 PM) [facility]
[2019-08-17 15:28] LABS: CALCIUM 9.1 mg/dL (8.5-10.1); CREATININE 0.8 mg/dL (0.6-1.0); GFR 87.1; POTASSIUM 3.7 mmol/L (3.5-5.1)
--- NOTE | 2019-08-20 18:51 | SLEEP ---
DATE OF STUDY: 08/17/2019 SLEEP STUDY REFERRING PHYSICIAN: Rei Rangel M.D. PRIMARY CARE PHYSICIAN: Derek Mendoza M.D. The patient is 63 years old who weighs 265 pounds with a BMI of 44. The patient's [place] score was 10. The patient underwent split night study performed at [facility]. During the night study, the patient spent 447 minutes in bed and slept for 335 minutes with a sleep efficiency of 75%. Sleep latency was 43 minutes with a REM latency of 306 minutes. Sleep architecture showed increased stage 1 sleep, normal stage 2 sleep, absent slow wave, and normal REM sleep. During the initial diagnostic portion of the study, the patient slept for 179 minutes. During that time, there were 3 obstructive apneas, no mixed or central apneas and 60 hypopneas. The patient's AHI was 21 per hour, supine AHI 11 per hour, and REM sleep was not seen during the diagnostic portion. EKG monitoring revealed normal sinus rhythm, average heart rate 88 beats per minute. PLMs were seen at index of 35 per hour and 3 per hour caused EEG arousals. Nocturnal oximetry study revealed a mean oxygen saturation of 93%; the lowest of 78%. 11% of the time oxygen saturation remained between 80% and 89%. The patient met the criteria for CPAP initiation. It was started at 5 cm water and titrated up to 12 cm water. At the final pressure, the patient slept for 50 minutes. The patient's AHI was reduced to 1 per hour. The patient had supine as well as REM sleep. Oxygen saturation remained above 93%. The patient used small sized full face mask. IMPRESSION: 1. Moderate sleep apnea-hypopnea syndrome at an apnea-hypopnea index of 21 per hour. Absence of rapid eye movement sleep during the diagnostic portion can underestimate the severity of sleep apnea. 2. Nocturnal hypoxia secondary to obstructive sleep apnea, but resolved with CPAP. 3. Moderate periodic limb movements. RECOMMENDATIONS: 1. CPAP at 12 cm water completely eliminated the patient's sleep apnea and should be used on a nightly basis. 2. Follow up in 4-6 weeks to assess compliance with CPAP and to document clinical improvement. 3. Weight loss is strongly advised. 4. Avoid FEATURES REPORTER depressants. 5. Cautioned regarding driving until symptoms of sleep apnea resolve with the use of CPAP. 6. The patient should also be further evaluated for symptoms of restless legs during the day. LUKASZ KRAUSE MD DR: APPI/fanta JOB#: [id number] / [id number] DEREK Guaman MD, GEORGE MD
== END | disposition home or self-care (01) ==
LOC: CT 15:07
PROVIDERS: ATTEND Internal Medicine Pulmonary Disease
DX: K44.9 Diaphragmatic hernia without obstruction or gangrene (principal); J98.11 Atelectasis; K76.0 Fatty (change of) liver, not elsewhere classified; M48.04 Spinal stenosis, thoracic region
CPT/HCPCS: 36415; 71250; 80048; 85379

== ENCOUNTER → 2019-08-17 | Outpatient (CLI) | payer MEDICARE, BC ==
[~2019-08-17] MED LIST changes: +ZOLPIDEM 5 MG TABLET. PO ONE
--- NOTE | 2019-08-28 08:10 | SLEEP ---
DATE OF STUDY: 08/17/2019 SLEEP STUDY REFERRING PHYSICIAN: Rei Rangel M.D. PRIMARY CARE PHYSICIAN: Derek Mendoza M.D. The patient is 63 years old who weighs 265 pounds with a BMI of 44. The patient's [place] score was 10. The patient underwent split night study performed at [facility]. During the night study, the patient spent 447 minutes in bed and slept for 335 minutes with a sleep efficiency of 75%. Sleep latency was 43 minutes with a REM latency of 306 minutes. Sleep architecture showed increased stage 1 sleep, normal stage 2 sleep, absent slow wave, and normal REM sleep. During the initial diagnostic portion of the study, the patient slept for 179 minutes. During that time, there were 3 obstructive apneas, no mixed or central apneas and 60 hypopneas. The patient's AHI was 21 per hour, supine AHI 11 per hour, and REM sleep was not seen during the diagnostic portion. EKG monitoring revealed normal sinus rhythm, average heart rate 88 beats per minute. PLMs were seen at index of 35 per hour and 3 per hour caused EEG arousals. Nocturnal oximetry study revealed a mean oxygen saturation of 93%; the lowest of 78%. 11% of the time oxygen saturation remained between 80% and 89%. The patient met the criteria for CPAP initiation. It was started at 5 cm water and titrated up to 12 cm water. At the final pressure, the patient slept for 50 minutes. The patient's AHI was reduced to 1 per hour. The patient had supine as well as REM sleep. Oxygen saturation remained above 93%. The patient used small sized full face mask. IMPRESSION: 1. Moderate sleep apnea-hypopnea syndrome at an apnea-hypopnea index of 21 per hour. Absence of rapid eye movement sleep during the diagnostic portion can underestimate the severity of sleep apnea. 2. Nocturnal hypoxia secondary to obstructive sleep apnea, but resolved with CPAP. 3. Moderate periodic limb movements. RECOMMENDATIONS: 1. CPAP at 12 cm water completely eliminated the patient's sleep apnea and should be used on a nightly basis. 2. Follow up in 4-6 weeks to assess compliance with CPAP and to document clinical improvement. 3. Weight loss is strongly advised. 4. Avoid IRRIGATION TEACHER depressants. 5. Cautioned regarding driving until symptoms of sleep apnea resolve with the use of CPAP. 6. The patient should also be further evaluated for symptoms of restless legs during the day. LUKASZ KRAUSE MD DR: PAPI/fanta JOB#: [id number] / [id number] DEREK Guaman MD, GEORGE MD
== END | disposition home or self-care (01) ==
LOC: SLPLAB 17:07
PROVIDERS: ATTEND Internal Medicine Pulmonary Disease
DX: G47.36 Sleep related hypoventilation in conditions classified elsewhere (principal)
CPT/HCPCS: 95810

== ENCOUNTER → 2019-09-10 | Outpatient (CLI) | payer MEDICARE, BC ==
[~2019-09-10] MED LIST changes: -ZOLPIDEM 5 MG TABLET. PO ONE
--- NOTE | 2019-09-10 12:09 | RAD ---
Bilateral lower extremity venous duplex study 09/10/2019 11:00 AM Clinical History: Hemoptysis. Bilateral lower extremity edema and pain Technique: Using a combination of real time ultrasound imaging and color-flow and pulse Doppler imaging techniques along with graded compression and augmentation, duplex evaluation of the deep venous system of the both lower extremities was performed. Multiple images were obtained. Findings: There is no sonographic evidence of deep venous thrombosis involving the visualized deep venous structures of either lower extremity. Impression: No evidence of deep venous thrombosis Electronically signed by: Miah Aranda MD (09/10/2019 12:06 PM) [id number]
--- NOTE | 2019-09-10 15:00 | RAD ---
AP and Lateral Views of the Chest 09/10/2019 12:00 AM Indication: Elevated d-dimer. Hemoptysis Comparison: Chest CT August 17, 2019 Findings: Exam somewhat limited by body habitus. Allowing for this, there is no focal consolidation or infiltrate identified. The cardiomediastinal silhouette is within normal limits. There is no evidence of pneumothorax or pleural effusion. No acute osseous abnormalities are identified. Impression: No evidence of acute cardiopulmonary process. Electronically signed by: Miah Aranda MD (09/10/2019 2:57 PM) [id number]
--- NOTE | 2019-09-10 16:45 | RAD ---
Lung scan 09/10/2019 CLINICAL HISTORY: Shortness of breath. TECHNIQUE: After the administration of 16.8 mCi of xenon-133 gas, ventilation images of both lungs were obtained using the gamma camera. After the intravenous administration of 5.5 mCi technetium 99m MAA, perfusion images of both lungs were obtained using the gamma camera. FINDINGS: Comparison is made to PA and lateral chest radiographs performed earlier today. These demonstrate no acute pulmonary infiltrate. Homogeneous ventilation/perfusion to both lungs is seen. No ventilation and perfusion defect is noted. These findings are consistent with a normal lung scan. IMPRESSION: Normal lung scan. Electronically signed by: John Moss MD (09/10/2019 4:42 PM) [facility]
== END ==
LOC: NM 11:18
PROVIDERS: ATTEND Internal Medicine Pulmonary Disease
DX: R04.2 Hemoptysis (principal); R06.02 Shortness of breath
CPT/HCPCS: 71046; 78582; 93970; A9540; A9558; 96374

== ENCOUNTER 2021-05-18 06:05 | Day surgery (SDC) | payer MEDICARE, BC ==
[~2021-05-18] VITALS: Ht 167.6 cm; Wt 128.6 kg
[~2021-05-18 06:05] MED LIST changes: +ACET1TAB33 PO; +AMLO-186 PO; +AMLO2.5T5 PO; -AMLO5TAB10 PO; +ARIP5TAB58 PO; +ASCO500C PO; +DOCU50CA9 PO; +FURO40TA4 PO; +HYDROmorphone 2 MG/ML VIAL IVP PRN; +IV RINGERS,LACTATED 1000ML 1,000 ML IV SCH; +MORPHINE SULFATE 2 MG/ML INJ. IVP PRN; +MULT-766 PO; +OMEP40CA7 PO; +OXYB5TAB10 PO; +POTA20TA4 PO; +PROCHLORPERAZINE 10 MG/2 ML VIAL. IVP PRN; +VENTOLIN HFA18 GM INH; +[UNRECOGNIZED DRUG - CODE] PO; +fentaNYL PF VIAL 100 MCG/2 ML VIAL IVP PRN
[2021-05-18] MEDS ORDERED: ACET500T33 PO (06:44)
[2021-05-18 06:47] VITALS: BP 110/54
[2021-05-18] MEDS ORDERED: BUPIVACAINE-EPI 0.25% 30 ML VIAL KIT. ONE ×2 (06:55→06:56)
[2021-05-18] MEDS ORDERED: FERRIC SUBSULFATE 8 ML SOL.W.APPL TP ONE (06:55)
[2021-05-18] MEDS ORDERED: LIDOCAINE 2% PF 5 ML VIAL. ONE (06:55)
[2021-05-18] MEDS ORDERED: POTASSIUM IODIDE/IODINE 14 ML SOLUTION. TP ONE (06:55)
[2021-05-18] MEDS ORDERED: fentaNYL PF VIAL 100 MCG/2 ML VIAL ONE ×2 (06:55→08:39)
[2021-05-18] MEDS ORDERED: PROPOFOL 10 MG/ML (20ML) VIAL. IV ONE ×2 (06:55→08:00)
[2021-05-18] MEDS ORDERED: DEXAMETHASONE SOD PHOS 4 MG/ML VIAL ONE (07:47)
[2021-05-18] MEDS ORDERED: ONDANSETRON PF 4 MG/2 ML VIAL. ONE (07:47)
[2021-05-18] MEDS ORDERED: SEVOFLURANE 31 TO 60 MINUTES. IH ONE (07:48)
[2021-05-18] MEDS ORDERED: HYDROcodone/APAP 5/325MG 1 TAB TABLET PO PRN (08:30)
[2021-05-18] MEDS ORDERED: SIMETHICONE 80 MG TAB.CHEW PO PRN (08:30)
[2021-05-18] MEDS ORDERED: MAG HYDROX/ALUMINUM HYD/SIMETH 30 ML ORAL.SUSP PO PRN (08:30)
[2021-05-18] MEDS ORDERED: 0.9 % SODIUM CHLORIDE 10 ML DISP.SYRIN. IV PRN (08:30)
[2021-05-18] MEDS ORDERED: NALOXONE 0.4 MG/ML VIAL. IV PRN (08:30)
[2021-05-18] MEDS ORDERED: CALCIUM CARBONATE 500 MG TAB.CHEW PO PRN (08:30)
--- NOTE | 2021-05-18 08:36 | PDOC4 ---
BRIEF OPERATIVE NOTE Date: May 18, 2021 Pre-Op Diagnosis MAK 1 but cannot rule out higher grade lesion; ASC-H on pap Post-Op Diagnosis same Procedure Performed LEEP Surgeon Dr. Alka Bhakta Anesthesiologist Dr. Stuart Anesthesia Type: General Blood Loss <5cc IV Fluid see anesthesia Urine Output straight cath prior to procedure Specimens Obtained ecto cervix with 12 upper half marked then seperate endocervical specimen Findings small normal appearing ecto cervix Complications none Operative Note [id number] ALKA BHAKTA MD May 18, 2021 08:36
[2021-05-18] MEDS: fentaNYL PF VIAL 100 MCG/2 ML VIAL IVP PRN ×2 (08:41→09:07)
[2021-05-18 09:17] VITALS: BP 131/56
--- NOTE | 2021-05-18 13:00 | OP ---
DATE OF SURGERY: 05/18/2021 PREOPERATIVE DIAGNOSIS: Cervical intraepithelial neoplasia 1, but cannot rule out a higher grade lesion and also ASC-H as atypical squamous cells, but again cannot rule out a higher grade lesion on Pap smear. POSTOPERATIVE DIAGNOSIS: Cervical intraepithelial neoplasia 1, but cannot rule out a higher grade lesion and ASC-H as atypical squamous cells, but again cannot rule out a higher grade lesion on Pap smear. PROCEDURE: Loop electrosurgical excision procedure. SURGEON: Alka Floyd MD. PIG FARMER: OR personnel. TYPE OF ANESTHESIA: General. BLOOD LOSS: Less than 5 mL. ANESTHESIOLOGIST: Kenneth Stuart MD INTRAVENOUS FLUIDS: Please see anesthesia records. URINE OUTPUT: With a straight cath prior to procedure. COMPLICATIONS: None. FINDINGS: She had a normal appearing ectocervix specimen. There was an ectocervical specimen top half and bottom half. Top half at 12 was tagged with a suture. Bottom half was sent with it and then a separate endocervical. It was set on 50/70 for the cut and coag. The cut was used for the ecto and endocervicals and the coag was used with the ball cautery at the end to obtain hemostasis and place a clot on the cervix. DESCRIPTION OF PROCEDURE: This patient was taken to the operating room where general anesthesia was placed. The patient was placed in dorsal lithotomy position in Jarred stirrups. The patient's outside of the vagina, chlorhexidine was used to prep the area, which a straight cath to be done as SHE HAD AN IODINE ALLERGY. Once the straight cath was done and I was in the room, a time-out was performed. Once everyone agreed on the patient, the site, the procedure, the procedure was initiated. A laser safe speculum was placed in the patient's vagina. Acetic acid was used to cleanse the vaginal area and cervix. A small loop was placed again on 50/70, but I used to cut for the top half of the ectocervix. This was marked with a suture. Bottom half of the ectocervix will be sent with it and then I did an internal deeper endocervical specimen that will be sent separately. Then, I switched to the ball cautery, which was on the 70 coag and it was used to obtain hemostasis. There was no active bleeding. No complications. Once the bleeding was done, the procedure was ended. All counts were correct by OR personnel. The patient was awakened from anesthesia and brought to recovery room in stable condition. OH/THUAN DR: Rah TID: [id number]
--- NOTE | 2021-05-26 20:24 | PATHOLOGY ---
[facility] Accession Number: [id number] . 01 Material submitted: . PART A: ectocervix - ECTOCERVIX TOP MARKED WITH STITCH PART B: endocervix - ENDOCERVIX . 01 Clinical history: . C1NI LEEP ASC-H . 02 Diagnosis: A. 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 - Nabothian cyst formation. . B. Uterus "endocervix", excision: - Squamous metaplasia; negative for dysplasia and malignancy. - Nabothian cyst formation. (MLK:aime; 05/26/2021) QTP 05/26/2021 1932 Local . 02 Comment: The case is seen in co-review with consensus, with Dr. Stanley Porras on 05/24/2021. (MLK:aime; 05/26/2021) . 02 Electronically signed: . Mohan Flynn MD, Pathologist NPI- [id number] . 01 Gross description: . A. Received in formalin labeled "Maggie Dietz, ectocervix. Top marked with stitch" is an oriented previously opened cervical conization specimen measuring 2.4 x 2.1 cm and excised to a maximum depth of 0.8 cm. The ectocervix is pink-alfaro and glistening. A suture is present at one aspect, indicating "top" and arbitrarily designated 12:00. The margins are inked as follows: Ectocervix-green, endocervix-blue, deep/stromal-black. The specimen is radially sectioned and submitted entirely as follows: A1 12:00-3:00 A2 3:00-6:00 A3 6:00-9:00 A4 9:00-12:00 . B. Received in formalin labeled "Dietz, Maggie, endocervix" is an unoriented portion of alfaro-white rubbery tissue measuring 2.1 x 1.4 cm and excised to a maximum depth of 1.1 cm. One aspect is concave, possibly consistent with superficial, and is inked black. The opposite aspect is convex, consistent with deep, and is inked green. A possible endocervical margin is identified on the deep aspect, inked blue. The specimen is radially sectioned and submitted entirely in cassettes B1-B2. ([place]; 05/19/2021) [facility] 05/19/2021 1847 Local . 02 Pathologist provided ICD-10: N72, N88.8, N87.9 . 02 CPT . 002575, [id number] Specimen Comment: A courtesy copy of this report has been sent to [phone], [phone] Specimen Comment: [id number] Specimen Comment: Report sent to / DR KWOK Performed at: 01 [facility] [address] [place] [id number] MD Kain Gordon MD Phone: [phone] Performed at: [address] [id number] MD Stanley Porras MD Phone: [phone]
== END 2021-05-18 09:50 | disposition home or self-care (01) ==
LOC: SURG 06:05
PROVIDERS: ATTEND Obstetrics & Gynecology
DX: N87.0 Mild cervical dysplasia (principal); I10 Essential (primary) hypertension; J44.9 Chronic obstructive pulmonary disease, unspecified; M19.90 Unspecified osteoarthritis, unspecified site; K21.9 Gastro-esophageal reflux disease without esophagitis; G47.30 Sleep apnea, unspecified; F32.9 Major depressive disorder, single episode, unspecified; F41.9 Anxiety disorder, unspecified; F17.210 Nicotine dependence, cigarettes, uncomplicated; Z98.890 Other specified postprocedural states; Z79.899 Other long term (current) drug therapy
CPT/HCPCS: 57522; A4930; J1100; J2405; J2704; J3010